=== PATIENT | female | born 1980 | race Caucasian/White ===

== ENCOUNTER 2022-04-20 11:17 | Emergency (ER) | payer OTHER, SELFPAY ==
[2022-04-20 11:33] VITALS: BP 113/74; PULSE 69; RESP 18; TEMP 36.8; O2SAT 98
--- NOTE | 2022-04-20 12:05 | ED.EAR ---
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 EYES: Denies visual changes, redness, discharge. ENT: Denies rhinorrhea, congestion, sore throat, left otalgia. CARDIOVASCULAR: Denies chest pain, palpitations, edema. RESPIRATORY: Denies dyspnea, wheezing, cough GASTROINTESTINAL: Denies abdominal pain, nausea, vomiting, diarrhea. GENITOURINARY: Denies dysuria, hematuria, abnormal discharge SKIN: Denies rash or itching. NEUROLOGIC: Denies numbness, or focal weakness. PSYCHIATRIC: Denies anxiety or depression. Exam Narrative: GENERAL: This is a well-nourished, well-developed patient, in mild distress. HEAD: normocephalic, atraumatic. EYES: Sclera clear/white. Vision is grossly intact. EARS: External ears normal, auditory canals erythema and left with drainage, hearing intact but muffling on left drainage, TMs normal without perforation. Hearing grossly intact. NOSE: External nose normal without nasal discharge, nares without redness, no rhinorrhea. THROAT: Mucous membranes moist, NECK: Neck supple, CARDIOVASCULAR: Regular rate and rhythm without murmurs, gallops, or rubs. RESPIRATORY: Clear to auscultation. Breath sounds equal bilaterally. No wheezes, rales, or rhonchi. GASTROINTESTINAL: Not done SKIN: warm, intact with no suspicious lesions or rash, good texture and turgor. NEURO: awake, alert, and oriented to person, place and time. There were no obvious focal neurologic abnormalities. Steady gait EXTREMITIES: Normal range of motion. BACK: Nontender without deformity Course Course Emergency Course: Patient here with left ear pain x2 weeks Has a history of otitis media and she has affected hearing on the left started on eardrops and amoxicillin Level of Care: Express Care Visit Vital Signs Vital signs: Vital Signs Temperature 98.3 F 04/20/22 11:33 Pulse Rate 69 04/20/22 11:33 Respiratory Rate 18 04/20/22 11:33 Blood Pressure 113/74 04/20/22 11:33 Pulse Oximetry 98 04/20/22 11:33 Oxygen Delivery Room Air 04/20/22 11:33 Temperature 98.3 F 04/20/22 11:33 Pulse Rate 69 04/20/22 11:33 Respiratory Rate 18 04/20/22 11:33 Blood Pressure 113/74 04/20/22 11:33 Pulse Oximetry 98 04/20/22 11:33 Oxygen Delivery Room Air 04/20/22 11:33 Medical Decision Making Vital Signs Vital Signs: Vital Signs Temperature 98.3 F 04/20/22 11:33 Pulse Rate 69 04/20/22 11:33 Respiratory Rate 18 04/20/22 11:33 Blood Pressure 113/74 04/20/22 11:33 Pulse Oximetry 98 04/20/22 11:33 Oxygen Delivery Room Air 04/20/22 11:33 Temperature 98.3 F 04/20/22 11:33 Pulse Rate 69 04/20/22 11:33 Respiratory Rate 18 04/20/22 11:33 Blood Pressure 113/74 04/20/22 11:33 Pulse Oximetry 98 04/20/22 11:33 Oxygen Delivery Room Air 04/20/22 11:33 Critical Care Time Critical Care Time Critical Care Time: No Discharge Plan Discharge Clinical Impression: Otitis media Patient Disposition: Home, Self-Care Condition: Stable Instructions: Antibiotic Form, Ear Infection (AC) Prescriptions: New kmrppvfz-xxeqpkxub-QV 3.5-10,000-1 mg/mL-unit/mL-% drops,suspension 4 drp EACH EAR Q8H 10 Days Qty: 10 0RF amoxicillin 875 mg tablet 875 mg PO
== END 2022-04-20 12:16 | disposition home or self-care (01) ==
PROVIDERS: Emergency Provider Nurse Practitioner; PCP Physician Assistant
DX: H66.92 Otitis media, unspecified, left ear (principal)
CPT/HCPCS: 99213; G0463

== ENCOUNTER 2022-05-09 09:36 | Outpatient (CLI) | payer OTHER, SELFPAY | END 2022-05-09 09:37 | disposition home or self-care (01) | PROVIDERS: PCP Physician Assistant; Visit Provider Obstetrics & Gynecology | DX: N92.0 Excessive and frequent menstruation with regular cycle (principal); Z01.818 Encounter for other preprocedural examination | CPT/HCPCS: 36415; 86850; 86900; 86901 ==

== ENCOUNTER 2022-05-10 01:25 | Day surgery (SDC) | payer OTHER, SELFPAY ==
[2022-05-07 10:14] VITALS: BMI 34.6
--- NOTE | 2022-05-07 10:25 | PC.NURSE ---
Report to the Outpatient Waiting Room, entrance under the green pavilion located off [facility], at time 10:00 on date 05/10/22. OR Time: 12:00. Time changes happen often and if your time is changed the preop area will call you the afternoon before. - You and your visitor will be asked to self-screen and do not enter if you have any COVID symptoms. - Only one visitor and NO children visitors are allowed at this time. YOU WILL BE ALLOWED 2 VISITORS AT A TIME ONCE IN YOUR ROOM AFTER SURGERY. - The patient visitor is requested to leave or wait in car when not with patient due to restrictions. - A mask is required within the hospital. Patients may have clear liquids (water, carbonated beverages, clear teas, apple juice) until 3 hours prior to surgery (9:00) with a maximum of 20 ounces. - No food from midnight until time of surgery Take the following medications with a SIP of water the morning of surgery: NONE Medications to discontinue per physician: VITAMINS/SUPPLEMENTS Date to take last dose: NO MORE UNTIL AFTER SURGERY Please no make-up, nail nicaraguan, hairspray, perfume, deodorant, or body powder the day of surgery. No jewelry (including any body piercings) or valuables the day of surgery, leave them at home. Please take a shower or bath the night before, or the morning of, surgery with an antibacterial soap. Wear comfortable, loose fitting clothing. - Jewelry must be removed prior to entering the operating room. Rings and piercings that are not removed may be cut off. - The hospital will not accept responsibility for valuables. - Please leave all valuables, including medications, at home the day of surgery. If you are going home after surgery, a licensed mechanic driver must drive you home. - NO public transportation without another adult. - We recommend that an adult stay with you for 24 hours following discharge. - We also recommend that you do not drive, make important decision, drink alcoholic beverages, or take any drugs that were not prescribed by your health care provider for at least 24 hours after your discharge time. Follow any additional instructions given to you from your surgeon. If you or anyone in your household have experienced Covid symptoms in the past week, please notify your surgeon or the nurse liaison at the phone number below for possible testing. Telephone instructions given to AMINATA HORTON and asked if any additional questions and then verbalized understanding. Patient advised to call surgeon office or pre surgery nurse liaison [phone] if any additional questions.
[2022-05-10] VITALS (9 sets, daily range): BP systolic 116–129; BP diastolic 71–87; PULSE 52–69; RESP 12–18; TEMP 36.4–36.8; O2SAT 96–100
--- NOTE | 2022-05-10 11:14 | WPDANESEPPF ---
Anes - Initial Pre Proc Eval Procedure: Operation Date: 05/10/22 12:00 Proposed Procedures p Robotic Assisted Hysterectomy with Bilateral Salpingectomy - Sepideh Grant MD Date/Time: 05/10/22 11:14 Surgeon: Sepideh Grant MD Pre Op Diagnosis: menorrhgahia Patient Data Age: 41 Gender: F Height: 1.64 m Weight: 93 kg Allergies Allergy/AdvReac Type Severity Reaction Status Date / Time No Known Allergies Allergy Mild Verified 05/07/22 10:12 Home Medications Medication Instructions Recorded Confirmed Type zzkgojeysaek-Ix-ufts-minerals 27 1 tablet PO DAILY 05/07/22 05/07/22 History mg-0.4 mg tablet Patient hx anesthesia problems: none Family hx anesthesia problems: none Results Review: All pre-operative results and documents have been reviewed as part of the pre-operative evaluation. [facility] Social History Social History Smoking status: Never smoker Alcohol intake: never Substance use: never Substance use type: does not use Living arrangements: with family Spiritual care concerns: No Anes - Eval Final PreProcedure Day of Procedure 05/10/22 11:14 Patient weight: obese Heart: regular rate and rhythm Lungs: clear to auscultation Neurological: alert and oriented Last oral intake: >/= 8 hours ASA classification: II Emergent: no Anesthetic plan: proceed Anesthesia type and monitoring: general ETT and standard monitoring Results Review: All pre-operative results and documents have been reviewed as part of the pre-operative evaluation. Informed Consent: The patient's anesthetic plan and its attendant risks and benefits were discussed with the patient/family/POA. Questions were solicited and answers provided to the satisfaction of the patient/family/POA.
[2022-05-10] MEDS: KETOROLAC 15 MG/ML VIAL (*BKC) IV PUSH (11:30)
[2022-05-10] MEDS: ACETAMINOPHEN 500 MG TABLET 1000 MG PO (11:30)
[2022-05-10] MEDS: LACTATED RINGERS 1,000 ML 30 ML IV CONT ×2 (11:30→16:26)
--- NOTE | 2022-05-10 12:39 | WPDHPUPDATE1 ---
History and Physical Update Update Date/Time: 05/10/22 12:39 History and Physical has been reviewed, including an updated exam of the patient. There are NO changes in the patient's condition. Risks, benefits, and alternatives have been discussed and questions answered. Patient agrees to proceed with procedure.
--- NOTE | 2022-05-10 12:40 | PM.IMHP ---
H&P: HPI History of Present Illness Date/Time: 05/10/22 12:40 Chief Complaint: Severe menorrhagia Narrative: This patient is a 41-year-old female severe menorrhagia and an enlarged fibroid uterus. We have agreed to perform robotic assisted total hysterectomy and bilateral salpingectomy. She understands the risks. She understands that injuries may occur. She understands injuries could result in hospitalization, more surgery, and severe illness. She understands risk of hemorrhage and infection. Review of Systems Review of Systems: All systems reviewed & are unremarkable except as noted in HPI and below Constitutional: Constitutional: Denies chills, Denies fatigue, Denies fever(s) and Denies weakness Eyes: Eyes: Denies blurry vision, Denies change in vision, Denies loss of peripheral vision, Denies loss of vision, Denies other visual disturbances and Denies eye pain ENT: Denies vertigo, Denies dizziness, Denies hearing loss, Denies mouth pain, Denies nasal obstruction, Denies neck mass and Denies neck pain Cardiovascular: Cardiovascular: Denies chest pain, Denies diaphoresis, Denies syncope, Denies leg edema and Denies dyspnea Respiratory: Respiratory: Denies chest congestion, Denies cough, Denies hemoptysis, Denies dyspnea and Denies wheezing Gastrointestinal: Gastrointestinal: Denies abdominal pain, Denies constipation, Denies diarrhea, Denies nausea and Denies vomiting Genitourinary: Genitourinary: Denies hematuria, Denies change in libido, Denies nocturia, Denies genital lesions, Denies flank pain and Denies urinary urgency Musculoskeletal: Musculoskeletal: Denies abnormal gait, Denies back pain, Denies myalgias, Denies arthralgias, Denies joint swelling, Denies muscle weakness and Denies neck pain Integumentary/Breasts: Skin/Breast: Denies swelling, Denies breast pain, Denies breast mass, Denies dry skin, Denies nipple discharge, Denies unusual bruising and Denies jaundice Neurologic: Denies Neuro-related abnormal movements, Denies Abnormal speech present, Denies abnormal gait, Denies behavioral changes, Denies confusion, Denies vertigo, Denies dizziness, Denies syncope, Denies loss of vision, Denies memory loss, Denies convulsions and Denies weakness Psychiatric: Psychiatric: Denies abnormal sleep pattern, Denies behavioral changes, Denies change in libido, Denies confusion, Denies depression, Denies anhedonia and Denies memory loss Endocrine: Endocrine: Reports no additional endocrine complaints, Denies change in libido and Denies fatigue Hematologic/Lymphatic: Hematologic/Lymphatic: Reports no additional hematologic/lymphatic complaints Allergic/Immunologic: Allergic/Immunologic: Reports no additional allergic/immunologic complaints and Denies wheezing PMFSH Social History Social History Smoking status: Never smoker Alcohol intake: never Substance use: never Substance use type: does not use Living arrangements: with family Spiritual care concerns: No Meds Home Medications and Allergies Home Medications Medication Instructions Recorded Confirmed Type vsgqyhntdxte-Vz-lqub-minerals 27 1 tablet PO DAILY 05/07/22 05/07/22 History mg-0.4 mg tablet Allergies Allergy/AdvReac Type Severity Reaction Status Date / Time No Known Allergies Allergy Mild Verified 05/10/22 11:41 Vital Signs Vital Signs - 24 hr 05/10/22 11:35 Temperature 97.5 F L Pulse Rate 65 Respiratory Rate 14 Blood Pressure 125/83 Pulse Oximetry 99 Oxygen Delivery Room Air Exam Const: General: cooperative, healthy appearing, comfortable and no acute distress; No confusion Orientation/consciousness: oriented to person, oriented to place, oriented to time and No confusion HENMT: Head: normal to inspection Ears: external ears normal Face/Nose/Sinus: Normal external nose present and normal facial exam Face and sinus: normal facial exam Eyes: General: appear
[2022-05-10] MEDS: ceFAZolin 2 GM/D5W 50 ML 2 GM/50 ML BAG IVPB (12:46)
--- NOTE | 2022-05-10 16:39 | P.OP_ITS ---
Procedure Note - Detailed Date of Procedure 05/10/22 Pre-op Diagnosis menorrhgahia, myoma Post-op Diagnosis Same (Endometriosis, pelvic adhesions) Procedure Performed Robotic assisted total hysterectomy with bilateral salpingectomy, adhesiolysis- 1 hour Surgeon Sepideh Grant MD Anesthesia General Indications Severe menorrhagia, uterine fibroids Findings Obliterated posterior cul-de-sac, endometriosis, endometrial implants in the posterior cul-de-sac, rectum adherent to the posterior cervix and uterus were, normal-appearing ovaries, enlarged fibroid uterus with a very large fibroid., normal-appearing fallopian tubes. Description of Procedure Patient was taken the operating room. She was prepped and draped in the dorsal lithotomy position after induction of general anesthesia. A speculum placed in vagina. Cervix grasped with tenaculum. Two sutures were placed at 3 and 9:00 a.m. of 0 Vicryl. These were drawn through the Co cup on the CHANTAL manipulator is the CHANTAL manipulator was inserted. The cervical stay sutures were then tied to the Co cup. A 5 mm trocar was inserted the left upper quadrant using a Visiport trocar. This trocar was placed with the camera inside the trocar. 3 other ports were placed 1 in the infraumbilical area, 2 in the right upper quadrant. This was done with direct visualization from inside the abdomen. The [employer] robot was then docked and the trocars were connected with their robotic arms. This was done after the camera was placed on the target and the target organ was captured for the robot. The above findings were noted. The bilateral fallopian tubes were removed. This was done with the vessel sealing cautery. This was done stepwise fashion from the distal end to the in and in the cornual region of the uterus. The tube was then transected and amputated. The tubes were removed through the larger trocar. The suspensory ligament the ovaries was cauterized and transected bilaterally. The round ligaments were cauterized and transected bilaterally. This was done with the vessel sealer. Extensive dissection was done the posterior cul-de-sac. 1 hour of adhesiolysis was performed throughout the case. The perirectal fat and rectum were from the uterus with blunt and sharp dissection. The lateral aspects of the uterus were then freed with repetitive bites of tissue along the lateral aspects of the uterus with the vessel sealer. The tissue was cauterized and then transected. Bladder flap was then created. The peritoneum and tissue on the anterior cervix near the bladder was transected. The bladder was then moved with blunt dissection distally over the cervix the bilateral ovarian arteries were then skeletonized cauterized and transected. The colpotomy was then performed in a circular fashion down to the Co cup using the cutting cautery. After the uterus was amputated had to be cut into 2 pieces using the cutting cautery. Both pieces were removed. The cuff was then closed with a 0 V lock suture in a running fashion. Pelvis was irrigated. Hematoma was placed on the vaginal cuff. Instruments removed. Trocars were removed. Skin was closed with subcuticular 4-0 Monocryl. Covered with Dermabond. The patient was taken recovery room stable condition. Sponge lap and needle counts were correct x2. Estimated Blood Loss -150.0 Urine Output -400.0 Pathology Yes Complications None Condition Stable Disposition Floor
[2022-05-10] MEDS: fentaNYL CITRATE INJ (*CRX) 100 MCG/2 ML VIAL 25 MCG IV PUSH ×4 (16:52→17:29)
--- NOTE | 2022-05-10 17:52 | PC.NURSE ---
Patient transferred to post room # via (289). Support person present. Oriented to unit, room, information board, rooming in, admission packet and security measures. Patient verbalizes understanding.
[2022-05-10] MEDS: DEXTROSE 5%/0.45% SOD CHL 1,000 ML 125 ML IV CONT (18:06)
[2022-05-10] MEDS: KETOROLAC 30 MG/ML VIAL (*BKC) IV PUSH ×2 (18:07→23:43)
[2022-05-10] MEDS: HYDROcodone/acetaminophen (*CRX) 10-325 MG TABLET 1 TAB PO ×2 (19:11→21:58)
[2022-05-11 04:40] VITALS: BP 97/63; PULSE 63; RESP 16; TEMP 36.7
--- NOTE | 2022-05-11 07:54 | WPDANESPN ---
Anes - Prog Note Post-Op Date/Time: 05/11/22 07:54 Cardiovascular status: normal Respiratory status: normal Airway patency: baseline Mental status: baseline Post-Op hydration status: normal Vital Signs: Last Vital Signs Temp 98.1 F 05/11/22 04:40 Pulse 63 05/11/22 04:40 Resp 16 05/11/22 04:40 BP 97/63 L 05/11/22 04:40 Pulse Ox 96 05/10/22 20:40 O2 Del Method Room Air 05/10/22 17:38 O2 Flow Rate 10 05/10/22 16:55 Pain Score (VAS): 3 I/O: Intake & Output 05/10/22 05/10/22 05/11/22 15:59 23:59 07:59 Intake Total 1000 1160 900 Output Total 650 300 Balance 1000 510 600 Post-procedural complaints: none Patient Feedback: Patient satisfied with anesthetic care.
[2022-05-11 08:45] VITALS: BP 89/49; PULSE 59; RESP 18; TEMP 36.9; O2SAT 98
[2022-05-11] MEDS: IBUPROFEN 600 MG TABLET PO (08:58)
[2022-05-11 09:00] VITALS: PULSE 59; RESP 18; O2SAT 98
== END 2022-05-11 10:26 | disposition home or self-care (01) ==
LOC: ANHSURGERY 10:04 → ANHOB2 20:31
PROVIDERS: PCP Physician Assistant; Visit Provider Obstetrics & Gynecology
PROC: (CPT 58552; principal; 2022-05-10 12:00)
DX: D25.2 Subserosal leiomyoma of uterus (principal); N80.209 Endometriosis of unspecified fallopian tube, unspecified depth; N92.0 Excessive and frequent menstruation with regular cycle
CPT/HCPCS: 58552; S2900; 36415; 86850; 86900; 86901; 88307; 99199; A9270; J0690; J1100; J1170; J1885; J2250; J2405; J2704; J2710; J3010; J7030; J7120

== ENCOUNTER → 2022-10-04 13:28 | Outpatient (CLI) | payer OTHER, SELFPAY ==
--- NOTE | ~2022-10-04 | MM_ITS ---
EXAMINATION: MM screening shala BI w jeannie HISTORY: Screening mammogram TECHNIQUE: Craniocaudal and mediolateral oblique 3-D tomosynthesis images were obtained and synthetic 2-D images were generated. Bilateral rotated lateral CC views. CAD analysis was submitted and interp reted. COMPARISON: 12/22/2018 bilateral diagnostic mammography and bilateral breast ultrasound examination bilateral diagnostic mammography and right breast ultrasound examination BREAST PARENCHYMAL COMPOSITION: The breasts are heterogeneously dense, which may obscure small masses . FINDINGS: There are 2 biopsy markers on the left, one associated with a circumscribed approximately 1 2 x 19 mm mass at 12:00, the other a circumscribed 10 x 12 mm mass in the lower inner quadrant of the left breast. History of 2 prior benign left breast biopsies. Stable low-density circumscribed approximately 5.5 x 8.5 mm opacity in the upper inner left breast un changed since 12/22/2018. There is no evidence otherwise of suspicious mass, calcification, or architectural distortion to sugg est malignancy in either breast. There has been no suspicious interval change. IMPRESSION: 1. No mammographic evidence of malignancy. 2. Recommend routine screening mammography in one year. BI-RADS Category 2: Benign finding(s). Reviewed, dictated and finalized at location A. LE COVERER
== END ==
PROVIDERS: PCP Obstetrics & Gynecology Gynecology; Visit Provider Advanced Practice Midwife
DX: Z12.31 Encounter for screening mammogram for malignant neoplasm of breast (principal)
CPT/HCPCS: 77063; 77067

== ENCOUNTER 2023-05-27 02:28 | Day surgery (SDC) | payer OTHER, SELFPAY ==
[2023-05-16 09:56] VITALS: BMI 35.2
[2023-05-27 09:15] VITALS: BP 113/67; PULSE 66; RESP 16; TEMP 36; O2SAT 98
[2023-05-27] MEDS: LACTATED RINGERS 1,000 ML 150 ML IV CONT (09:24)
--- NOTE | 2023-05-27 09:52 | P.HP_ITS ---
History of Present Illness History of Present Illness Consent: Risks, benefits, and alternatives have been discussed and questions answered. Patient agrees to proceed with procedure. Chief complaint: Family history of colon cancer Narrative: Lucila Garcia is a 42 year old female Presents for screening colonoscopy. Family history is significant that her mother had colon cancer. Patient's current weight appetite and bowel movements are normal. Patient denies abdominal pain. She has had no bleeding. Neoplasia screening to be performed today. Review of Systems Review of Systems: Review of systems noncontributory. [facility] Social History Social History Smoking status: Never smoker Alcohol intake: never Substance use: never Substance use type: does not use Living arrangements: with family Spiritual care concerns: No Meds Home Medications and Allergies Home Medications Medication Instructions Recorded Confirmed Type roauxewbatwj-Gc-ngwo-minerals 27 1 tablet PO DAILY 05/07/22 05/16/23 History mg-0.4 mg tablet estradiol 1 mg tablet 1 mg PO DAILY 05/16/23 05/16/23 History Allergies Allergy/AdvReac Type Severity Reaction Status Date / Time No Known Allergies Allergy Mild Verified 05/27/23 09:14 Vital Signs Vital Signs - 24 hr 05/27/23 09:15 Temperature 96.8 F L Pulse Rate 66 Respiratory Rate 16 Blood Pressure 113/67 Pulse Oximetry 98 Oxygen Delivery Room Air Exam Narrative: Physical exam reveals patient to be alert. Vital signs stable. HEENT exam is unremarkable. Patient is anicteric. Lungs are clear to auscultation and percussion. Heart is without murmur or extra sounds. Abdomen bowel sounds are present soft nontender with no hepatosplenomegaly. Digital external rectal exam is normal. Assessment and Plan Assessment and plan (1) Family history of colon cancer in mother: Code(s): Z80.0 - Family history of malignant neoplasm of digestive organs Status: Acute Assessment and Plan: Patient's mother has had colon cancer. Plan for surveillance colonoscopy now and consider this at 5 year intervals in the future.
--- NOTE | 2023-05-27 10:27 | P.PNAN_ITS ---
Anes - Initial Pre Proc Eval Procedure: Operation Date: 05/27/23 10:30 Proposed Procedures p Colonoscopy - Dimas Lassiter MD Date/Time: 05/27/23 10:27 Surgeon: Dimas Lassiter MD Pre Op Diagnosis: Family history of colon cancer Patient Data Age: 42 Gender: F Height: 1.63 m Weight: 93 kg Last Vital Signs Temp 96.8 F L 05/27/23 09:15 Pulse 78 05/27/23 10:18 Resp 15 05/27/23 10:18 BP 90/59 L 05/27/23 10:18 Pulse Ox 98 05/27/23 10:18 O2 Del Method Room Air 05/27/23 10:18 Allergies Allergy/AdvReac Type Severity Reaction Status Date / Time No Known Allergies Allergy Mild Verified 05/27/23 09:14 Home Medications Medication Instructions Recorded Confirmed Type apacyefnjvki-Ml-rsep-minerals 27 1 tablet PO DAILY 05/07/22 05/16/23 History mg-0.4 mg tablet estradiol 1 mg tablet 1 mg PO DAILY 05/16/23 05/16/23 History Patient hx anesthesia problems: none Family hx anesthesia problems: none Results Review: All pre-operative results and documents have been reviewed as part of the pre- operative evaluation. [facility] Social History Social History Smoking status: Never smoker Alcohol intake: never Substance use: never Substance use type: does not use Living arrangements: with family Spiritual care concerns: No Anes - Eval Final PreProcedure Day of Procedure 05/27/23 10:27 Patient weight: obese Heart: regular rate and rhythm Lungs: clear to auscultation Airway: Mallampati scale class II Neurological: alert and oriented Last oral intake: >/= 8 hours ASA classification: II Emergent: no Anesthetic plan: proceed Anesthesia type and monitoring: general GIVS and standard monitoring Results Review: All pre-operative results and documents have been reviewed as part of the pre- operative evaluation. Informed Consent: The patient's anesthetic plan and its attendant risks and benefits were discussed with the patient/family/POA. Questions were solicited and answers provided to the satisfaction of the patient/family/POA.
[2023-05-27 11:00] VITALS: BP 110/58; PULSE 72; RESP 24; O2SAT 100
[2023-05-27 11:10] VITALS: BP 120/73; PULSE 74; RESP 20; O2SAT 100
[2023-05-27 11:20] VITALS: BP 113/72; PULSE 60; RESP 25; O2SAT 100
== END 2023-05-27 11:27 | disposition home or self-care (01) ==
PROVIDERS: Visit Provider Internal Medicine Gastroenterology
PROC: 0DJD8ZZ Inspection of Lower Intestinal Tract, Via Natural or Artificial Opening Endoscopic (ICD-10-PCS; CPT 45378; principal; 2023-05-27 10:30)
DX: Z12.11 Encounter for screening for malignant neoplasm of colon (principal); K63.5 Polyp of colon; E66.9 Obesity, unspecified; Z68.35 Body mass index [BMI] 35.0-35.9, adult; Z80.0 Family history of malignant neoplasm of digestive organs
CPT/HCPCS: 45385; 88305; J2704; J7120

== ENCOUNTER → 2023-07-01 10:14 | Outpatient (CLI) | payer OTHER, SELFPAY ==
--- NOTE | ~2023-07-01 | DEXA_ITS ---
Bone Density Report Name: SOL MICHAEL Age: 42 Sex: Female Ethnicity: White Date of : 1980 Indication: postmenopausal; hysterectomy; Referring Provider: BROOK TAN Study: Bone densitometry was performed. Exam Date: July 01, 2023 Accession number: [id number] Bone Density: Region BMD T-score Z-score Classification AP Spine (L1-L4) 1.170 1.1 1.5 Normal Femoral Neck (Left) 0.948 0.9 1.3 Normal Total Hip (Left) 1.025 0.7 1.0 Normal Femoral Neck (Right) 0.989 1.3 1.7 Normal Total Hip (Right) 1.072 1.1 1.3 Normal Total Hip Mean 1.049 0.9 1.2 Normal World Health Organization criteria for BMD impression classify patients as: Normal (T-score at or above -1.0), Osteopenia (T-score between -1.0 and -2.5), or Osteoporosis (T-score at or below -2.5). 10-year Fracture Risk: FRAX not reported because: All T-scores for Spine Total, Hip Total, Femoral Neck at or above -1.0 Clinical Information Provided by Patient: Has used the following medications: HRT (i.e. estrogen/hormone therapy), MARIA ELENA Has the following medical conditions: Hysterectomy Patient maximum height was 64.6 Menopause Age: 41 No regular weight bearing exercise Drinks caffeinated beverages Onset of menses at age 9 Number of children 2 Impression: The patient has normal bone mass. Discussion: BONE DENSITY IS ABOVE THE MINIMUM DESIRABLE LEVEL AT ALL SKELETAL SITES TESTED. This patient?s bone mineral density is above the minimum desirable level (T-score -1.0 or better) at all sites measured. The patient should follow a healthful lifestyle (good nutrition with adequate calcium and vitamin D, and appropriate weight-bearing exercise). Follow-Up: Consider repeating this study in 5 years or sooner if there is some new clinical indication. Reported by: NURY on 07/01/2023 10:33:00 AM. Reviewed, dictated and finalized at location ADebbie YO
== END ==
PROVIDERS: PCP Obstetrics & Gynecology Gynecology; Visit Provider Obstetrics & Gynecology Gynecology
DX: Z78.0 Asymptomatic menopausal state (principal)
CPT/HCPCS: 77080

== ENCOUNTER 2024-01-15 08:43 | Outpatient (CLI) | payer OTHER, SELFPAY ==
--- NOTE | ~2024-01-15 | MMUS_ITS ---
EXAMINATION: MM diagnostic shaal BI w jeannie, US breast LT limited HISTORY: Palpable left breast lump TECHNIQUE: Additional 3-D tomosynthesis images of the breasts were performed and synthetic 2-D images were generated. CAD analysis was submitted and interpreted. High resolution Limited left breast ultr asound was performed. COMPARISON: Comparison to multiple prior studies sequentially, with oldest reviewed study dated 12/22. BREAST PARENCHYMAL COMPOSITION: Dense: The breasts are extremely dense, which lowers the sensitivity of mammography. FINDINGS: MAMMOGRAPHIC FINDINGS: There is a small obscured mass in the upper outer quadrant of the left breast corresponding to the ar ea of palpable concern. There are masses in the left breast in the upper central and lower central as pect of the left breast with associated tissue markers from prior benign biopsies. There is no mammog raphic evidence for malignancy in the right breast. ULTRASOUND: Limited left breast ultrasound: At 12:00, 4.5 cm from the nipple, there is a slightly irregular solid hypoechoic 2.2 cm mass with mix ed posterior attenuation and no internal vascularity. At 1-2:00, 7 cm from the nipple, there is an 8 mm intramammary lymph node. At T2-3 o'clock, 10 cm from the nipple, there is a 1 cm intramammary lymp h node. IMPRESSION: 1. Suspicious solid 2.2 cm left breast mass at 12:00, 4.5 cm from the nipple. 2. Ultrasound-guided left breast biopsy recommended. BI-RADS category 4, suspicious findings. Reviewed, dictated and finalized at location B. IMPRESSION: 1. Suspicious solid 2.2 cm left breast mass at 12:00, 4.5 cm from the nipple. 2. Ultrasound-guided left breast biopsy recommended. BI-RADS category 4, suspicious findings.
== END 2024-01-15 08:44 ==
LOC: MICIMG 08:44
PROVIDERS: PCP Obstetrics & Gynecology Gynecology; Visit Provider Obstetrics & Gynecology Gynecology
DX: N63.21 Unspecified lump in the left breast, upper outer quadrant (principal); R92.8 Other abnormal and inconclusive findings on diagnostic imaging of breast
CPT/HCPCS: 76642; 77062; 77066; G0279

== ENCOUNTER 2024-02-12 12:34 | Outpatient (CLI) | payer OTHER, SELFPAY ==
--- NOTE | ~2024-02-12 | MR_ITS ---
MR breast BI wo/w con 02/12/2024 14:10 CDT INDICATION: Left breast mass seen on prior examination. Previous benign biopsies of the left breast a t outside institution. TECHNIQUE: MRI of the breasts perform using standard protocol pre-and post IV contrast with the follo wing sequences: Axial T2 STIR, axial T1, axial vibrant T1 with fat suppression precontrast and multip hasic postcontrast. 19 cc MultiHance administered intravenously. COMPARISON: Comparison to multiple prior studies sequentially, with oldest reviewed study dated 12/2012. FINDINGS: There are no abnormalities on the precontrast sequences. There is moderate background paren chymal enhancement. No enhancing lesions following contrast administration. No areas of enhancement meeting threshold criteria on CAD analysis. No evidence of signal abnormalities in the axillary or internal mammary node distributions. LEFT BREAST: No signal abnormalities on precontrast sequences. There is mild background parenchymal enhancement. In the upper inner quadrant of the left breast 11:00 anteriorly there is a circumscribed oval mass measuring 1.9 x 1.6 x 1.3 cm with focal susceptibility effect, consistent with biopsy von er is benign biopsy. The margins are circumscribed with homogeneous rapid plateau enhancement. In the lower inner quadrant of the left breast at 7:00, middle third there is a 1.6 x 1.2 x 1.2 cm mass wit h associated susceptibility effect, consistent with previous benign biopsy. This is located 7.1 cm fr om the nipple, best seen on prior mammogram on MLO view. This was also previously biopsy-proven benig n. In the upper outer quadrant of the left breast at approximately 2:00, middle third there is an 8 x 6 x 5 mm oval mass with rapid washout enhancement. The margins are circumscribed. This corresponds t o a lymph node seen on prior ultrasound. IMPRESSION: 1: Right breast: Negative. No evidence of malignancy. BI-RADS category 1. Recommend annual mammo graphy follow-up. 2: Left breast: Negative. Likely benign findings. Multiple masses are identified,, 2 of which conta in susceptibility effect corresponding to masses with tissue marker seen on prior mammography, previo usly biopsy-proven benign. An additional mass with oval configuration corresponds to a intramammary l ymph node seen on ultrasound dated 01/15/2024. BI-RADS CATEGORY 3-PROBABLY BENIGN FINDING RECOMMENDATION: Six-month follow-up diagnostic left mammogram and ultrasound recommended. Reviewed, dictated and finalized at location B. IMPRESSION: 1: Right breast: Negative. No evidence of malignancy. BI-RADS category 1. Recommend annual mammography follow-up. 2: Left breast: Negative. Likely benign findings. Multiple masses are identif ied,, 2 of which contain susceptibility effect corresponding to masses with tis sylwia marker seen on prior mammography, previously biopsy-proven benign. An addit ional mass with oval configuration corresponds to a intramammary lymph node see n on ultrasound dated 01/15/2024. BI-RADS CATEGORY 3-PROBABLY BENIGN FINDING RECOMMENDATION: Six-month follow-up diagnostic left mammogram and ultrasound re commended.
== END 2024-02-12 12:35 | disposition home or self-care (01) ==
PROVIDERS: Visit Provider Surgery
DX: Z12.31 Encounter for screening mammogram for malignant neoplasm of breast (principal); R92.343 Mammographic extreme density, bilateral breasts; N63.20 Unspecified lump in the left breast, unspecified quadrant; R92.8 Other abnormal and inconclusive findings on diagnostic imaging of breast
CPT/HCPCS: 77049; A9577; C8908

== ENCOUNTER 2024-05-30 11:58 | Emergency (ER) | payer OTHER, SELFPAY ==
--- NOTE | 2024-05-30 12:05 | ED_ITS ---
HPI - General Adult General Chief complaint: Upper Respiratory Infection Stated complaint: congestion / cough Time Seen by Provider: 05/30/24 12:05 Source: patient Mode of arrival: ambulatory Limitations: no limitations History of Present Illness HPI narrative: 43-year-old female patient presents to the [facility] with complaints of cough and congestion for the past 6 days. Patient complains of itchy eyes but denies any ear pain or sore throat. Denies any chest pain and states does have shortness of breath at times in the middle of the night when her nose is very clogged. Denies any abdominal pain, nausea, vomiting or diarrhea. Patient states she does take Zyrtec daily and has tried taking sopi-rds-ebhnwib Benadryl and DayQuil NyQuil for her symptoms. Related Data Home Medications Medication Instructions Recorded Confirmed estradiol 1 mg tablet 1 mg PO DAILY 05/16/23 05/16/23 Allergies Allergy/AdvReac Type Severity Reaction Status Date / Time No Known Allergies Allergy Mild Verified 05/30/24 12:11 Review of Systems Review of Systems: CONSTITUTIONAL: Denies fever, chills, or sweats. EYES: Denies visual changes, redness, or discharge. ENT: Positive rhinorrhea, congestion, denies sore throat, denies otalgia. CARDIOVASCULAR: Denies chest pain, palpitations, or edema. RESPIRATORY: positive cough denies dyspnea. GASTROINTESTINAL: Denies abdominal pain, nausea, vomiting, or diarrhea. GENITOURINARY: Denies dysuria or hematuria. SKIN: Denies rash or itching. MUSCULOSKELETAL: Denies back pain, joint pain, or myalgia. NEUROLOGIC: Denies headache, numbness, or weakness. PSYCHIATRIC: Denies anxiety or depression. [facility] Past Medical History Medical History (Updated 05/30/24 @ 12:26 by IDALMIS Moyer) Abnormality of left breast on screening mammogram Breast mass, left Eczema Family history of colon cancer in mother Fibroid uterus Myoma Family History Family History Mother Carcinoma of colon Grandparent Family history of diabetes mellitus in first degree relative Social History Social History Smoking status: Never smoker Second hand tobacco smoke exposure: No Alcohol intake: never Substance use: never Substance use type: does not use Living arrangements: with family Spiritual care concerns: No Comments At the time of my signature I agree with nursing past medical history, surgical, social, and family history. There is no relevant family history pertinent to the presenting complaint. Exam Narrative: GENERAL: Well-appearing, well-nourished, and in no acute distress. HEAD: Normocephalic, atraumatic. EYES: PERRLA and EOMI. ENT: Nares with erythema edema noted to bilateral nares, no active rhinorrhea or epistaxis. Mucous membranes moist. posterior pharynx with 2+ tonsillar enlargement no erythema there is postnasal drip noted to the posterior pharynx. NECK: Supple. No lymphadenopathy CHEST: Clear to auscultation. No respiratory distress. HEART: Regular rate and rhythm. No murmur heard. Normal peripheral pulses. ABDOMEN: Soft, nontender, nondistended, normal active bowel sounds. EXTREMITIES: Normal range of motion. No edema. SKIN: Warm, dry, no rash. NEURO: No focal deficits. Alert and oriented x3. Course Course Level of Care: Express Care Visit Vital Signs Vital signs: Vital Signs Temperature 36.6 C 05/30/24 12:09 Pulse Rate 89 05/30/24 12:09 Respiratory Rate 18 05/30/24 12:09 Blood Pressure 136/79 05/30/24 12:09 Pulse Oximetry 99 05/30/24 12:09 Oxygen Delivery Room Air 05/30/24 12:09 Temperature 36.6 C 05/30/24 12:09 Pulse Rate 89 05/30/24 12:09 Respiratory Rate 18 05/30/24 12:09 Blood Pressure 136/79 05/30/24 12:09 Pulse Oximetry 99 05/30/24 12:09 Oxygen Delivery Room Air 05/30/24 12:09 Vital signs reviewed. Medical Decision Making MDM Narrative Medical decision making narrative: Discussed with patient that her lungs are clear and there is no fevers today I think the low likelihood of any bronchitis or pneumonia is very low at this point. Discussed with patient this time is mostly due to virus or could be due to environmental allergens. Discussed with patient we will discharge her home with Tessalon Perles and a steroid Dosepak to help with the congestion and drainage. Discussed with patient she can continue taking her Zyrtec and I would highly recommend an cyot-zoi-shglrcz Flonase to help with the congestion as well. Discussed with patient if her symptoms worsen she develops fevers, chest pain or shortness of breath highly recommend she go to the ER for further evaluation and treatment. Patient verbalized understanding denies any other questions or concerns at this time. Differential Diagnosis Differential Diagnosis: Differential diagnosis: Allergic rhinitis, chronic sinusitis, tonsillitis, acute sinusitis, infectious mononucleosis, seasonal influenza, pertussis, diphtheria, meningococcal disease, viral syndrome, viral bronchitis, RSV, COVID- 19 Vital Signs Vital Signs: Vital Signs Temperature 36.6 C 05/30/24 12:09 Pulse Rate 89 05/30/24 12:09 Respiratory Rate 18 05/30/24 12:09 Blood Pressure 136/79 05/30/24 12:09 Pulse Oximetry 99 05/30/24 12:09 Oxygen Delivery Room Air 05/30/24 12:09 Temperature 36.6 C 05/30/24 12:09 Pulse Rate 89 05/30/24 12:09 Respiratory Rate 18 05/30/24 12:09 Blood Pressure 136/79 05/30/24 12:09 Pulse Oximetry 99 05/30/24 12:09 Oxygen Delivery Room Air 05/30/24 12:09 Critical Care Time Critical Care Time Critical Care Time: No Discharge Plan Discharge Clinical Impression: Viral URI with cough Patient Disposition: Home, Self-Care Condition: Stable Instructions: Antibiotic Form, Viral Syndrome (ED) Additional Instructions: Viral illness may last between 7-12days; antibiotic is NOT recommended at this time. Recommend antihistamine such as Benadryl at night time and Claritin/Zyrtec/Kandi during the day Cough syrup may cause drowsiness; avoid driving or take it at night time. Also, recommend symptomatic treatment includes: rest, fluids, and increase humidity of the air at home. Recommend Acetaminophen or nonsteroidal anti-inflammatory agents (NSAIDs) as directed in the bottle to reduce fever and/pain/headache. Avoid smoking/second-hand smoke. Limit visits to areas with large crowds. Please schedule a follow-up visit with your personal physician for further evaluation and treatment within 3-5days. Including recheck and discussion of your blood pressure. If your symptoms persist, change or worsen significantly before you can contact your personal physician then please, without delay, go to the emergency department for further evaluation. Prescriptions: New benzonatate 200 mg capsule 200 mg PO TID PRN (Reason: cough) 10 Days Qty: 30 0RF prednisone 20 mg tablet 20 mg PO DAILY 5 Days Qty: 5 0RF No Action estradiol 1 mg tablet 1 mg PO DAILY Follow-up/Referrals: UNKNOWN,DOCTOR [Primary Care Provider] - Time of Disposition: 12:26
[2024-05-30 12:09] VITALS: BP 136/79; PULSE 89; RESP 18; TEMP 36.6; O2SAT 99
== END 2024-05-30 12:32 | disposition home or self-care (01) ==
PROVIDERS: Emergency Provider Nurse Practitioner Family
DX: J06.9 Acute upper respiratory infection, unspecified (principal); R05.9 Cough, unspecified
CPT/HCPCS: 99213; G0463

== ENCOUNTER 2024-09-02 09:14 | Outpatient (CLI) | payer OTHER, SELFPAY ==
--- NOTE | ~2024-09-02 | MMUS_ITS ---
EXAMINATION: MM diagnostic shala LT w jeannie, US breast LT complete HISTORY: Follow-up left breast masses. TECHNIQUE: Additional 3-D tomosynthesis images of the left breast were performed and synthetic 2-D im ages were generated. CAD analysis was submitted and interpreted. High resolution complete left breast ultrasound was performed. COMPARISON: Comparison to multiple prior studies sequentially, with oldest reviewed study dated 12/2012. BREAST PARENCHYMAL COMPOSITION: Dense: The breasts are heterogeneously dense, which may obscure small masses FINDINGS: MAMMOGRAPHIC FINDINGS: Stable obscured masses In the upper central aspect of the left breast in the lower inner quadrant of the left breast, both o f which contain biopsy markers and were previously biopsy-proven benign. No new masses, calcification s or architectural distortion in the left breast to suggest malignancy. There is a benign appearing i ntramammary lymph node in the upper outer quadrant of the left breast posteriorly. ULTRASOUND: Complete US of all 4 quadrants of the left breast/s and retroareolar region was reviewed. At 12:00, 4 cm from the nipple there is an oval parallel oriented hypoechoic mass without posterior f eatures or internal vascularity measuring 2.2 x 0.9 x 5 cm, without significant change from prior douglas dy allowing for technique. At 1-2:00, 7 cm from the nipple there is a 9 mm intramammary lymph node. A t 6:00, 3 cm from the nipple there is a round hypoechoic mass containing a linear echogenic focus, co nsistent with biopsy clip measuring 1.2 cm. This was previously biopsy proven benign. IMPRESSION: 1. Stable left breast mass at 12:00, 4 cm from the nipple without significant change dating back to allowing for differences of technique, likely benign. 2. Recommend 6 month follow-up bilateral mammogram and Limited left breast ultrasound recommended. BI-RADS category 3, probably benign findings. Reviewed, dictated and finalized at location A. INSPECTOR IMPRESSION: 1. Stable left breast mass at 12:00, 4 cm from the nipple without significant c hange dating back to 12/22/2018 allowing for differences of technique, likely be nign. 2. Recommend 6 month follow-up bilateral mammogram and Limited left breast ultr asound recommended. BI-RADS category 3, probably benign findings.
== END 2024-09-02 09:15 | disposition home or self-care (01) ==
PROVIDERS: PCP Surgery; Visit Provider Surgery
DX: R92.8 Other abnormal and inconclusive findings on diagnostic imaging of breast (principal); N63.22 Unspecified lump in the left breast, upper inner quadrant
CPT/HCPCS: 76641; 77061; 77065; G0279

== ENCOUNTER 2025-04-13 10:00 | Emergency (ER) | payer OTHER, SELFPAY ==
--- NOTE | 2025-04-13 10:08 | ED.FEMALEGU ---
HPI - Female Genitourinary General Chief complaint: Urogenital-Female Stated complaint: UTI Time Seen by Provider: 04/13/25 10:08 Source: patient, RN notes reviewed and old records reviewed Mode of arrival: ambulatory Limitations: no limitations History of Present Illness HPI Narrative: 44 year old female who presents to [facility] care with complaints of having white vaginal discharge with some itching and did take Monistat OTC 3 day treatment which did seem to help till started having again the white discharge last night and was itchy again. Patient reports she thinks she may of gotten a little dehydrated over the weekend was busy and didn't drink fluids like she should. She reports that for past few days not urinating as much and has been trying to drink fluids. Patient reports that she had some suprapubic pressure last evening and did take some Tylenol at bedtime. denies any burning with urination or any chills or fevers or any back pain or any CVA tenderness, Patient reports no nausea, vomiting or diarrhea, denies any fevers.Patient reports no concern for any STI's MD elicited complaint: UTI (concern) and other (white vaginal discharge with itching) Onset (ago): week(s) (initial symptoms 1 week then increased last night) Location of symptoms: suprapubic (pressure last evening) and vaginal Severity scale (1-10): 2 Quality of pain: aching Vaginal discharge: white and other (itchy) Related Data Home Medications ?Medication ?Instructions ?Recorded ?Confirmed ?Last Taken ?Type estradiol 1 mg tablet 1 mg PO DAILY 05/16/23 04/13/25 Unknown History Allergies Allergy/AdvReac Type Severity Reaction Status Date / Time No Known Allergies Allergy Mild Verified 04/13/25 10:06 Review of Systems Review of Systems: CONSTITUTIONAL: Denies fever, chills, or sweats. CARDIOVASCULAR: Denies chest pain, palpitations, or edema. RESPIRATORY: Denies cough or dyspnea. GASTROINTESTINAL: Denies abdominal pain, nausea, vomiting, or diarrhea. GENITOURINARY: Reports no dysuria, frequency, urgency, reports voiding in small amounts Denies flank pain or hematuria. reports white discharge that is itchy and episode of suprapubic discomfort last evening SKIN: Denies rash or itching. MUSCULOSKELETAL: Denies back pain or myalgia. Denies CVA tenderness NEUROLOGIC: Denies headache All systems reviewed & are unremarkable except as noted in HPI and below PMFSH Past Medical History Medical History Abnormality of left breast on screening mammogram Breast mass, left Family history of colon cancer in mother Fibroid uterus Myoma Eczema Surgical History Surgical History H/O: hysterectomy Family History Family History Mother Carcinoma of colon Grandparent Family history of diabetes mellitus in first degree relative Social History Social History Smoking status: Never smoker Second hand tobacco smoke exposure: No Alcohol intake: never Substance use: never Substance use type: does not use Living arrangements: with family Spiritual care concerns: No Comments At time of signature, agree with nursing past medical, surgical, social and family history. There is no relevant family history pertinent to the presenting complaint Exam Narrative: GENERAL: Well-appearing, well-nourished, and in no acute distress. HEAD: Normocephalic, atraumatic. NECK: Supple. no lymphadenopathy CHEST: Clear to auscultation. No respiratory distress. HEART: Regular rate and rhythm. No murmur heard. Normal peripheral pulses. ABDOMEN: Soft, nontender, nondistended, normal active bowel sounds. No CVA tenderness, no McBurney point tenderness and denies any acute suprapubic pain on palpation, reports no burning with urination, has some white discharge without odor and states is itching EXTREMITIES: Normal range of motion. No edema. SKIN: Warm, dry, no rash. NEURO: No focal deficits. Alert and oriented x3. Course Course Emergency Course: Patient is aware of diagnosis, understands and agrees to treatment plan.? Anticipatory guidance given.? Patient agrees to follow-up as directed and is aware of reasons to seek care at the emergency department. Portions of this record may have been created with voice recognition software Level of Care: Express Care Visit Vital Signs Vital signs: Vital Signs Temperature 36.2 C L 04/13/25 10:12 Pulse Rate 68 04/13/25 10:12 Respiratory Rate 18 04/13/25 10:12 Blood Pressure 117/76 04/13/25 10:12 Pulse Oximetry 99 04/13/25 10:12 Oxygen Delivery Room Air 04/13/25 10:12 Temperature 36.2 C L 04/13/25 10:12 Pulse Rate 68 04/13/25 10:12 Respiratory Rate 18 04/13/25 10:12 Blood Pressure 117/76 04/13/25 10:12 Pulse Oximetry 99 04/13/25 10:12 Oxygen Delivery Room Air 04/13/25 10:12 reviewed MDM - Female Genitourinary MDM Narrative Medical decision making narrative: Exam findings and UA show no acute concerns or changes; patient is non-toxic appearing and is in no distress.? Patient is appropriate for outpatient treatment and follow-up. Differential Diagnosis Differential diagnosis: Likely urinary tract infection, cystitis and other (vaginal yeast infection) Medical Records Attestation: I reviewed the patient's medical records. Lab Data Attestation: I reviewed the patient's lab results. Lab results narrative: urine dip: Yellow and slightly cloudy: glucose negative, bilirubin negative, ketone negative, specific gravity 1.025, blood negative, pH 6.0 protein negative, urobilinogen 0.2 nitrate negative, leukocyte negative Labs: Lab Results 04/13/25 Range/Units 10:17 POC Urine Color Yellow POC Urine Clarity Cloudy POC Urine pH 6.0 POC Ur Specif [place] 1.025 POC Urine Protein Negative (Negative) POC Ur Glucose (UA) Negative (Negative) POC Urine Ketones Negative (Negative) POC Urine Blood Negative (Negative) POC Urine Nitrite Negative (Negative) POC Urine Bilirubin Negative (Negative) POC Urine Urobilinogen 0.2 POC U Leukocyte Esteras Negative (Negative) reviewed Critical Care Time Critical Care Time Critical Care Time: No Discharge Plan Discharge Clinical Impression: Vaginal yeast infection, Suprapubic pressure Patient Disposition: Home Condition: Stable Instructions: Yeast Infection (ED) Additional Instructions: Increase fluids especially cranberry juice and water Avoid caffeine and carbonated beverages Tylenol/ibuprofen for pain or fever Follow-up with her primary care provider if further problems or concerns Recheck if you have fever over 101, nausea and vomiting. Diflucan as ordered urine culture sent and you will be notified if it grows any abnormal bacteria and an appropriate antibiotic will be ordered at that time. If your symptoms persist, change or worsen significantly before you can contact your personal physician then please, without delay, go to the emergency department for further evaluation. Follow-up with PCP in 7-10 days or sooner if needed Patient Language: Kazakh Prescriptions: New fluconazole 150 mg tablet 150 mg PO DAILY Qty: 2 0RF Rx Instructions: take one today and may repeat X1 if needed in 72 hours No Action benzonatate 200 mg capsule 200 mg PO TID PRN (Reason: cough) 10 Days Qty: 30 0RF prednisone 20 mg tablet 20 mg PO DAILY 5 Days Qty: 5 0RF estradiol 1 mg tablet 1 mg PO DAILY Follow-up/Referrals: PHYSICIAN,EXHAUST WORKER [Primary Care Provider, Internal Medicine] Time of Disposition: 10:29 Quality [place] Coma Scale Eyes: Open Verbal: Oriented and Alert Motor: Follows Commands Minnie Coma Total Score: 15
[2025-04-13 10:12] VITALS: BP 117/76; PULSE 68; RESP 18; TEMP 36.2; O2SAT 99
[2025-04-13 10:20] LABS: EDUAAPPEAR Cloudy; EDUABILI Negative (Negative); EDUABLOOD Negative (Negative); EDUACOLOR1 Yellow; EDUAGLUCOSE Negative (Negative); EDUAKETONE Negative (Negative); EDUALEUKO Negative (Negative); EDUANITRATE Negative (Negative); EDUAPH 6.0; EDUAPROTEIN Negative (Negative); EDUASPGRAVITY 1.025; EDUAUROBILI 0.2
--- OUTSIDE RECORDS SUMMARY | 2025-04-13 11:21 | XMS_ITS | Clinical Summary ---
Author Organization [facility] Address [address] [place] [address] Care Team Providers Care Computational Chemist Name Role Phone Unavailable Primary Care Provider Unavailabl e Source Comments [facility],non-owned Affiliates and Associated Physician Practices is amultiple site organization consisting of ambulatory clinics and hospital sitesin [place], [place], [place] and [place]. This disclosure is being madepursuant to the Care Everywhere program and may not contain all information available regarding this patient. Last updated 18.[employer] Allergies No known active allergies Medications * Be aware that medications may not be up to date on this document. Alwaysverify current medications with the patient. hydrOXYzine pamoate (VISTARIL) 25 MG capsule Take 1 capsule by mouth 3 times daily as needed 20 capsule 06/14/2020 Active Social History Tobacco Use Types Packs/Day Years Used Date Smoking Tobacco: Never Assessed Smokeless Tobacco: Never Comments Unknown Sex and Gender Information Value Date Recorded Sex Assigned at Not on file Legal Sex Female 2:38 PM CDT Gender Identity Not on file Sexual Orientation Not on file Last Filed Vital Signs Vital Sign Reading Time Taken Comments Blood Pressure 126/80 06/14/2020 6:15 PM LEGAL AID Pulse 72 06/14/2020 6:15 PM LEGAL AID Temperature - - Respiratory Rate 16 06/14/2020 6:15 PM LEGAL AID Oxygen Saturation 98% 06/14/2020 6:15 PM LEGAL AID Inhaled Oxygen Concentration - - Weight - - Height - - Body Mass Index - - Plan of Treatment Health Maintenance Due Date Last Done Comments COLOGUARD (AGES 45-75) - COL ON CA SCREENING 1978 COLON MONITORING 1978 COLONOSCOPY - COLON CA SCREENING 1978 CT COLONOGRAPHY - COLON CA SCREENING 1978 Colorectal Cancer Screening 1978 FIT - COLON CA SCREENING 1978 FLEX SIG - COLON CA SCREENING 1978 LIPID TESTING 1978 MAMMOGRAM 1978 HIV SCREENING 1993 HEPATITIS C SCREENING 10/11/1996 DTAP/TDAP/TD VACCINES (1 - Tdap) 1997 HEPATITIS B VACCINE (1 of 3 - 19+ 3-dose series) 1997 PAP SMEAR 10/17/1999 DEPRESSION SCREENING 08/05/2024 COVID-19 VACCINE (1 - 2023-2 5 season) 2025 INFLUENZA VACCINE (#1) 2025 ZOSTER VACCINE (1 of 2) 2028 HIB VACCINE Aged Out No longer eligi ble based on patient's age to complete this topic HPV VACCINE Aged Out No longer eligi ble based on patient's age to complete this topic MENINGOCOCCAL (Group B) VACC INE SHARED DECISION-MAKING Aged Out No longer eligibl e based on patient's age to complete this topic MENINGOCOCCAL GROUPS A/C/Y/W VACCINE Aged Out No longer eligible b ased on patient's age to complete this topic PNEUMOCOCCAL VACCINE Aged Out No long er eligible based on patient's age to complete this topic Insurance AETNA AETNA AETNA
--- OUTSIDE RECORDS SUMMARY | 2025-04-13 11:21 | XMS_ITS | Encounter Summary ---
Author Organization [facility] Address [address] [place] [address] Care Team Providers Care Quality Improvement Coordinator Name Role Phone Unavailable Primary Care Provider Unavailabl e Encounter Details Date Type Department Care Team (Late st Contact Info) Description 06/02/2024 Lab Requisition [facility] - DermPath Lab [address] [place] [id number] Hemalatha King PA [address] [place] [id number] Neoplasm of uncertain behavior of skin Social History Tobacco Use Types Packs/Day Years Used Date Smoking Tobacco: Never Assessed Smokeless Tobacco: Never Comments Unknown Sex and Gender Information Value Date Recorded Sex Assigned at Not on file Legal Sex Female 2:38 PM CDT Gender Identity Not on file Sexual Orientation Not on file documented as of this encounter Plan of Treatment Not on file documented as of this encounter Procedures Procedure Name Priority Date/Time Associated Diagnosis Comments DERMATOPATHOLOGY Routine 06/02/2024 12:0 0 AM CDT Neoplasm of uncertain behavior of skin documented in this encounter Results * DERMATOPATHOLOGY (06/02/2024 12:00 AM CDT) Case Report Dermatopathology Report Case: [id number] Authorizing Provider: Hemalatha King PA Collected: 06/02/2024 12:00 AM Ordering Location: [facility] - Received: 06/03/2024 12:47 PM DermPath Lab Pathologist: Inna Ku MD Specimen: Skin, left elbow 2:20 PM CDT DERMATOPATHOLOGY LABORATORY Final Diagnosis Specimen A. SKIN, left elbow: INTRADERMAL MELANOCYTIC NEVUS WITH CONGENITAL FEATURES (D22.9) 2:20 PM CDT DERMATOPATHOLOGY LABORATORY at 1420 CDT Clinical History Inflamed nevus 2:20 PM CDT DERMATOPATHOLOGY LABORATORY Gross Description Specimen A: Received is one formalin filled container labeled with the patient's name and designated left elbow. The specimen consists of a shave biopsy measuring 4x4x1 mm. Jar 0. 2:20 PM CDT DERMATOPATHOLOGY LABORATORY Microscopic Description Specimen A. SKIN, left elbow: There are nests of cytologically bland melanocytes within the dermis. Some of these melanocytes are concentrated around blood vessels and adnexal structures. 2:20 PM CDT DERMATOPATHOLOGY LABORATORY Disclaimer An external and internal positive and negative controls are appropriate for the histochemical, immunohistochemical and immunofluorescence stain(s) in this case (if any), except where stated explicitly. The performance characteristics of the stain(s) cited in this report were developed and its performance characteristic determined by the Dermatopathology Laboratory at [facility], directed by Dr. Mickey Perez. These tests need not be, and therefore are not, approved by the [place] Food and Drug Administration. The tests are used for clinical purposes. Billing Codes Specimen Charges Stain Charges 87917 1 2:20 PM CDT DERMATOPATHOLOGY LABORATORY Embedded Images 2:20 PM CDT DERMATOPATHOLOGY LABORATORY Pathology/Cytolog y TISSUE SPECIMEN FROM SKIN / Unknown 06/02/2024 06/03/2024 12:47 PM CDT [facility] - PATHOLOGY/CYTOLOGY OR DERABLES Final Result DERMATOPATHOLOGY LABORATORY [facility] - Department of Dermatology [address] [phone] documented in this encounter Visit Diagnoses Diagnosis Neoplasm of uncertain behavior of skin documented in this encounter
--- OUTSIDE RECORDS SUMMARY | 2025-04-13 11:24 | XMS_ITS | Clinical Summary ---
Author Organization [facility] Address [address] [place] [id number] Care Team Providers Care Supervisor Machining Name Role Phone Kay Mccormack Primary Care Provider Allergies No known active allergies Medications Multiple Vitamin (MULTI-VITAMIN DAILY OR) Take by mouth daily. Active Bee Pollen 500 MG Chew Tab Chew by mouth nightly as needed. Active estradiol (ESTRACE) 1 MG tablet Take 1 tablet (1 mg total) by mouth daily. 01/20/2024 Active Active Problems No known active problems Immunizations Immunization Administration Dates Next Due Tdap (Generic) 03/04/2013 Family History Medical History Relation Comments Cancer Mother Stroke Mother Relation Status Comments Mother Social History Tobacco Use Types Packs/Day Years Used Date Smoking Tobacco: Never Smokeless Tobacco: Never Tobacco Cessation:Counseling Given: No Alcohol Use Standard Drinks/Week Comments Never 0 (1 standard drink = 0.6 oz pur e alcohol) AUDIT-C Answer Date Recorded Frequency of Alcohol Consumption Never 09/22/2019 Average Number of Drinks Not on file 020 Frequency of Binge Drinking Not on file 09/05 PHQ-2 Answer Date Recorded PHQ-2 Score - If the patient scores above 3, please move on to questions 3-9 0 05/29/2021 Comments No Sex and Gender Information Value Date Recorded Sex Assigned at Not on file Legal Sex Female 2:41 PM CDT Gender Identity Not on file Sexual Orientation Not on file Last Filed Vital Signs Vital Sign Reading Time Taken Comments Blood Pressure 121/84 11/14/2024 8:01 PM CDT Pulse 72 11/14/2024 8:01 PM CDT Temperature 36.7 C (98.1 F) 11/14/2024 7:00 PM CDT Respiratory Rate 20 11/14/2024 8:01 PM CDT Oxygen Saturation 97% 11/14/2024 8:01 PM CDT Inhaled Oxygen Concentration - - Weight 93 kg (205 lb) 11/14/2024 5:27 PM CDT Height 163.8 cm (5' 4.5) 11/14/2024 5:27 PM CDT Body Mass Index 34.64 11/14/2024 5:27 PM CDT Plan of Treatment Health Maintenance Due Date Last Done Comments Colorectal Cancer Screening Colonoscopy (10 Years) 1978 Annual Physical 1981 Hepatitis C 1996 Hepatitis B Vaccines (1 of 3 - 19+ 3-dose series) 1997 DTaP, Tdap and Td Vaccines ( 2 - Td or Tdap) 03/04/2023 03/04/2013 Mammogram Screening 07/31/2023 07/31/2021, 06/26/2021 PHQ-2 (Physician [place]) 08/05/2024 COVID-19 Vaccine (3 - 2024-2 6 season) 2025 11/08/2020, 10/17/2020 Meningococcal B Vaccine Aged Out No l onger eligible based on patient's age to complete this topic Meningococcal Vaccine Aged Out No priscila dave eligible based on patient's age to complete this topic Pneumococcal Vaccine: Pediatrics (0 to 5 Years) and At-Risk Patients (6 to 49 Years) Aged Out No longer eligible b ased on patient's age to complete this topic RSV Immunizations Under 20 Months Aged Out No longer eligible b ased on patient's age to complete this topic Procedures Procedure Name Priority Date/Time Associated Diagnosis Comments MG DIAG W JESÚS RT DIGI Routine 07/31/2021 2:41 PM DIRECTOR PRODUCT DEVELOPMENT Abnormal mammogram of right breast from Last 3 Months or Most Recently Relevant to Health Maintenance Results * MG DIAG W JESÚS RT DIGI (07/31/2021 2:41 PM DIRECTOR PRODUCT DEVELOPMENT) Anatomical Region Laterality Modality Breast Right Mammography, Rad iographic Imaging 07/31/2021 3:08 PM DIRECTOR PRODUCT DEVELOPMENT Narrative 07/31/2021 3:10 PM DIRECTOR PRODUCT DEVELOPMENT RIGHT BREAST DIAGNOSTIC MAMMOGRAPHY WITH TOMOSYNTHESIS AND COMPUTER AIDED DETECTION: MG [place] W JESÚS RT DIGI CLINICAL HISTORY: abnormal mammogram on 07/03/2021 . COMPARISON STUDIES: 06/26/2021. FINDINGS: Right spot compression views in the CC and MLO projection, right ML 2-D and 3-D acquisitions demonstrate heterogeneously dense glandular parenchyma, the focal asymmetry is difficult to distinguish from the overlying parenchyma. Same-day ultrasound confirms a classic appearing lymph node in the area abnormality explaining the findings. CONCLUSION: 1. BI-RADS Category 0 - needs additional imaging evaluation. 2. BREAST TISSUE COMPOSITION: The breast tissue is heterogeneously dense, which may obscure small masses. MQSA BI-RADS Categories: Category 0 - needs additional imaging evaluation. Category 1 - negative. Category 2 - benign findings. Category 3 - probably benign findings, but short interval follow-up is recommended. Category 4 - suspicious abnormality and biopsy should be considered though the lesion may well be benign. Category 5 - highly suggestive of malignancy and appropriate action should be taken. A) A negative report should not delay a biopsy if a dominant or clinically suspicious mass is present. B) Adenosis and dense breasts may obscure an underlying neoplasm. C) Study interpreted with computer aided detection. Voice recognition software utilized. Ordered By: KAY MCCORMACK Interpreted By: Steven Clark, 07/31/2021 3:08 PM Kay Mccormack [place] MAMMO Final Result from Last 3 Months or Most Recently Relevant to Health Maintenance Insurance AETNA Care Teams Supervisor Machining Relationship Specialty [place] [address] [place] [address] PCP - General PHYSICIAN SHEET METAL APPRENTICE 05/29/21
== END 2025-04-13 10:30 | disposition home or self-care (01) ==
PROVIDERS: Emergency Provider Registered Nurse
DX: B37.31 Acute candidiasis of vulva and vagina (principal); R10.30 Lower abdominal pain, unspecified
CPT/HCPCS: 81003; 87086; 99213; G0463

== ENCOUNTER 2025-06-15 08:57 | Emergency (ER) | payer OTHER, SELFPAY ==
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
--- NOTE | 2025-06-15 09:02 | ED.URI ---
HPI - URI/Sore Throat General Chief Complaint: Upper Respiratory Infection Stated Complaint: URI Time Seen by Provider: 06/15/25 09:01 Source: patient Mode of arrival: ambulatory Limitations: no limitations History of Present Illness HPI Narrative: Patient is a 44-year-old female who presents with 3 days of headache, sinus pressure, congestion, drainage, fatigue, hoarse voice and intermittent slight cough. Denies any sore throat, ear pain, fever, chills, nausea, vomiting, diarrhea. Patient has taken DayQuil, NyQuil and severe sinus and cold. Related Data Home Medications ?Medication ?Instructions ?Recorded ?Confirmed ?Last Taken ?Type estradiol 1 mg tablet 1 mg PO DAILY 05/16/23 06/15/25 Unknown History Allergies Allergy/AdvReac Type Severity Reaction Status Date / Time No Known Allergies Allergy Mild Verified 06/15/25 09:20 Review of Systems Review of Systems: All systems reviewed & are unremarkable except as noted in HPI and below Constitutional: Constitutional: Denies chills, Denies fatigue, Denies fever(s), Reports headache(s), Denies malaise and Denies weakness Eyes: Eyes: Denies blurry vision, Denies itchy eyes and Denies loss of vision ENT: Denies otalgia, Reports headache(s), Reports nasal congestion, Denies sinus pain, Reports sinus pressure and Denies sore throat Cardiovascular: Cardiovascular: Denies chest pain, Denies irregular heart rhythm and Denies dyspnea Respiratory: Respiratory: Reports cough and Denies dyspnea Gastrointestinal: Gastrointestinal: Denies abdominal pain, Denies diarrhea, Denies nausea and Denies vomiting Musculoskeletal: Musculoskeletal: Denies back pain, Denies myalgias and Denies arthralgias Integumentary/Breasts: Skin/Breast: Denies pruritus and Denies rash Neurologic: Reports headache(s), Denies loss of vision and Denies weakness Psychiatric: Psychiatric: Reports no additional psychiatric complaints Endocrine: Endocrine: Denies fatigue Allergic/Immunologic: Allergic/Immunologic: Denies itchy eyes PMFSH Past Medical History Medical History Abnormality of left breast on screening mammogram Breast mass, left Family history of colon cancer in mother Fibroid uterus Myoma Eczema Surgical History Surgical History H/O: hysterectomy Family History Family History Mother Carcinoma of colon Grandparent Family history of diabetes mellitus in first degree relative Social History Social History Second hand tobacco smoke exposure: No Alcohol intake: never Substance use: never Substance use type: does not use Living arrangements: with family Spiritual care concerns: No Comments At time of signature, agree with nursing past medical, surgical, social and family history. There is no relevant family history pertinent to the presenting complaint. Exam Const: General: cooperative, healthy appearing, comfortable, no acute distress and well nourished Nutritional Appearance: well nourished Orientation/consciousness: patient oriented x3 Limitations: no limitations HENMT: Head: normal to inspection, normocephalic and atraumatic Ears: hearing grossly normal bilaterally, external ears normal, TM's normal bilaterally, EAC's normal and no periauricular adenopathy Face/Nose/Sinus: Normal external nose present, Abnormal mucous membranes and turbinates present erythematous bilateral and diffuse, normal facial exam, sinuses nontender and face symmetric Face and sinus: normal facial exam, sinuses nontender and face symmetric Mouth: Yes Normal oral and palatal mucosa present, Yes lip normal, Yes tongue normal, Yes Normal salivary glands and ducts present, Yes oropharynx normal and Yes moist mucous membranes Teeth and gingiva: dentition normal Throat: posterior oropharynx normal, tonsils normal and uvula midline Eyes: General: appearance normal, both eyes and all related structures Alignment and Position: alignment normal and position normal Periorbital: periorbital findings normal Eyelids: eyelids normal Pupils: Equal, round and reactive pupils present Neck: Neck: normal visual inspection, full ROM, no lymphadenopathy and supple Chest: Chest palpation & inspection: normal inspection of the chest and normal palpation of entire chest wall Resp: Effort & Inspection: normal respiratory effort and able to speak in complete sentences Auscultation: clear to auscultation bilaterally, no crackles, no rales, no rhonchi and no wheezes Cardio: Rate: regular rate Rhythm: regular rhythm Heart sounds: S1 normal heart sound present and S2 normal heart sound present GI: Inspection: normal to inspection Skin: General skin exam: normal color and no rashes or lesions noted Neuro: General: patient oriented x3 and moves all extremities Cranial nerves: Yes Equal, round and reactive pupils present Speech: normal speech Gait exam (Neuro): Normal gait present Extrem: General: normal to inspection, full ROM and no edema Psych: Appearance: grossly normal and well kempt Mental Status: mental status grossly normal Speech and movement: Normal speech and movement present Affect: normal affect Attitude: cooperative Thought process: Normal thought process present Course Course Emergency Course: Discharge instructions reviewed with patient, as well as provided in writing per nursing staff. The instructions also include specific and strict return/GO TO THE ER as well as f/u information. All questions have been answered, and the patient deny any further questions with discharge and discharge plan. Portions of this record may have been created with voice recognition software Level of Care: Express Care Visit Vital Signs Vital signs: Vital Signs Temperature 36.4 C L 06/15/25 09:07 Pulse Rate 71 06/15/25 09:07 Respiratory Rate 18 06/15/25 09:07 Blood Pressure 126/74 06/15/25 09:07 Pulse Oximetry 99 06/15/25 09:07 Oxygen Delivery Room Air 06/15/25 09:07 Temperature 36.4 C L 06/15/25 09:07 Pulse Rate 71 06/15/25 09:07 Respiratory Rate 18 06/15/25 09:07 Blood Pressure 126/74 06/15/25 09:07 Pulse Oximetry 99 06/15/25 09:07 Oxygen Delivery Room Air 06/15/25 09:07 Reviewed MDM - URI/Sore Throat MDM Narrative Medical decision making narrative: Will send in Flonase and suggest other symptom management options. Offered Tessalon Perles but patient declined as she is seeing her cough is mild and not keeping her up. Patient asked about antibiotics and explained that it is viral in nature and symptoms will last anywhere from 5-10 days. Offered testing to patient but did explain that it would not change course of treatment as we are outside the window for antivirals, patient declined testing. Did not do strep test as patient is not having fever or sore throat. Pt well hydrated appearing, in no respiratory distress, hemodynamically stable. Recommend supportive care. The patient is stable at time of discharge the clinical impression was discussed and the patient was given the opportunity to ask questions, which were addressed as completely as possible given the information available at present. Anticipatory guidance and return to care precautions were discussed and the importance of primary care follow-up was stressed and encouraged. The patient voiced understanding of the plan, indications to return, and the need for follow-up. Exam findings show no acute concerns or changes Patient is appropriate for outpatient treatment and follow-up. Differential diagnosis considered: [place] virus, strep pharyngitis, allergic rhinitis, upper respiratory tract infection, sinusitis, rhinosinusitis, nasopharyngitis. viral pharyngitis, otitis media, otitis externa, otitis effusion, foreign body, cerumen impaction, viral syndrome, and influenza.? Medical Records Attestation: I reviewed the patient's medical records. Discharge Plan Discharge Clinical Impression: URI (upper respiratory infection) Qualifiers: URI type: unspecified viral URI Qualified Code(s): J06.9 - Acute upper respiratory infection, unspecified Patient Disposition: Home Condition: Stable Instructions: Upper Respiratory Infection (ED) Additional Instructions: Your symptoms are likely due to a viral illness, which is not treated with antibiotics. Viral symptoms can be present for up to a few weeks. -For pain/fever, you may take: Tylenol 650-1000mg by mouth every 4-6 hours. Do not exceed 4000mg in 24 hours. Advil (Ibuprofen) 600 mg by mouth every 6 hours. Do not exceed 2400mg in 24 hours. 8 AM: Tylenol 11 AM: Ibuprofen 2 PM: Tylenol 5 PM: Ibuprofen 8 PM: Tylenol 11 PM: Ibuprofen 2 AM: Tylenol 5 AM: Ibuprofen -Antihistamine medication such as Benadryl/Zyrtec at night and Claritin/Akndi during the day can help improve symptoms. -Use Flonase twice a day for 5 days then daily to help reduce the inflammation and dry up your sinuses. -You can also use Sudafed behind the pharmacy counter(12 or 24 hour). Be sure to drink plenty of water with these medications at least 8 ounces with every dose and it is important to drink 8 to 10 glasses of water per day. Water is a natural decongestant -Eat and drink things that are easy to swallow, like tea or soup, or popsicles. -Oral rinses such as: Salt water gargles and/or may use topical anesthetic (eg. Chloraseptic spray) or lozenges to relieve dryness or throat pain). -Frequent hand washing or hand geospatial intelligence analyst is one of the best ways to prevent spread of infection. -Using a vaporizer or humidifier at night will also help thin secretions and help with coughing up phlegm. Call your Primary Care Doctor and make a follow-up appointment in 3 days. If your cough worsens, you develop a fever greater than 103, you develop shaking chills, a fast heartbeat, trouble breathing and/or feel you are are breathing much faster than usual, call your Primary Care Doctor or go to the ER. Patient Language: Slovenian Prescriptions: New fluticasone propionate [Flonase Allergy Relief] 50 mcg/actuation spray,suspension 1 spray intranasal DAILY Qty: 16 0RF Rx Instructions: administer into each nostril No Action estradiol 1 mg tablet 1 mg PO DAILY Follow-up/Referrals: Chung Palacios MD [Physician, Family Practice] - 3 Days Time of Disposition: 09:28
[2025-06-15 09:07] VITALS: BP 126/74; PULSE 71; RESP 18; TEMP 36.4; O2SAT 99
--- OUTSIDE RECORDS SUMMARY | 2025-06-15 09:12 | XMS_ITS | Data Portability ---
Author Organization [facility], PCDebbie Johnson Address [address] [place] [address] Assessment No assessment recorded. Plan of Treatment Reminders Order Date Submit Date Provider Last Modified By Organization Details Last Modified Time Details Appointments None recorded. Lab None recorded. Referral None recorded. Procedures None recorded. Surgeries None recorded. Imaging None recorded. Medication Orders metronidazo le 0.75 % (37.5 mg/5 gram) vaginal gel 2022 023 [facility] #[id number], [address], [address], 3 03:34:38 triamcinolo ne acetonide 0.5 % topical cream 2021 022 [facility] #[id number], [address], [address], 3 14:16:15 Medrol (Tyler) 4 mg tablets in a dose pack 2021 022 [facility] #[id number], [address] [facility] [address] [place] [address], [address], 3 14:16:11 Patient TargetsNo targets recorded. Patient InstructionsNo instructions recorded. Reason for Referral None Reported. Results Created Date Observation Date Name Description Value Unit Range Abnormal Flag Note LastModifiedBy Organization Detail LastModifiedTime 09/10/1909/10/2022 VAGIN ITIS/ VAGIN OSIS, DNA PROBE maritza sp. detection, direct probe Negati ve negati ve Not Available [facility] (Lab) [address] [facility], [place], [address], 09/11/2022 21:27:08 09/10/19 23 09/10/2022 VAGIN ITIS/ VAGIN OSIS, DNA PROBE gardnerella vag. detection, direct probe Negati ve negati ve Not Available [facility] (Lab) [address] [facility], [place], [address], 09/11/2022 21:27:08 09/10/19 23 09/10/2022 VAGIN ITIS/ VAGIN OSIS, DNA PROBE trichomonas vag. detection, direct probe Negati ve negati ve Not Available [facility] (Lab) [address] [facility], [place], [address], 09/11/2022 21:27:08 08/17/19 23 07/31/2021 MAMMO , scree roseanna, bilat eral No observ ation record ed. [email or web address] [facility] [address] [place], [address], 12/13/2022 15:41:43 08/17/19 23 07/31/2021 MAMMO , scree roseanna, bilat eral No observ ation record ed. [email or web address] [facility] [address], [place], [address], 08/28/2022 15:02:04 08/17/19 23 07/31/2021 MAMMO , scree roseanna, bilat eral No observ ation record ed. [email or web address] [facility] [address], [place], [address], 08/27/2022 16:54:51 08/20/19 23 07/31/2021 MAMMO , diagn ostic , digit al, bilat eral No observ ation record ed. [email or web address] [facility] [address] [facility] [address], [place], [address], 12/13/2022 15:42:03 08/20/1907/31/2021 MAMMO , diagn ostic , digit al, bilat eral No observ ation record ed. [facility] [address], [place], [address], 08/21/2022 12:05:40 10/05/1910/04/2022 MAMMO , scree roseanna, bilat eral No observ ation record ed. [facility] [address] [facility], [place], [address], 10/08/2022 13:12:38 Result Notes None recorded. Problems Name Problem SNOMED Code Status Onset Date Resolution Date Notes Provider Name and Address Organization Details Recorded Time Removal of intraute rine device Completed 201011/11/2020 REMOVAL OF IUD;Prac latosha ID: 0001 Alexandra gomez [facility] 16:25:47 Speciali zed medical examinat ion Completed 201211/11/2020 Gynecolo gical Examinat ion;Tristin rded Elsewher e: No Locat ion: [facility] S ource: EHR Information Systems Analyst gina: N Practi ce ID: 0001 Rell lable Time: 01:00:00 PM Alexandra gomez [facility] 16:25:55 Screenin g for malignan t neoplasm of cervix Completed 201211/11/2020 Screenin g for malignan t neoplasm s of the cervix;R ecorded Elsewher e: No Locat ion: [facility] S ource: EHR Information Systems Analyst gina: N Practi ce ID: 0001 Rell lable Time: 01:00:00 PM Alexandra gomez [facility] 16:25:48 Breast lump [id number] Completed 201211/11/2020 Lump or mass in breast;P ractice ID: 0001 Alexandra gomez [facility] 16:25:32 Pregnanc y test negative [id number] Completed 201211/11/2020 Pregnanc y examinat ion or test, negative result;R ecorded Elsewher e: No Locat ion: [facility] S ource: EHR Information Systems Analyst gina: N Practi ce ID: 0001 Rell lable Time: 03:30:00 PM Alexandra Lindsay [facility] 16:25:44 Dysfunct ional uterine bleeding Completed 201211/11/2020 DUB;Macy latosha ID: 0001 [facility]:25:36 Female genital organ symptoms [id number] Completed 201211/11/2020 Unspecif ied symptom associat ed with female genital organs;R ecorded Elsewher e: No Locat ion: [facility] S ource: EHR Information Systems Analyst gina: N Practi ce ID: 0001 Rell lable Time: 03:30:00 PM Alexandra gomez [facility] 16:25:37 Cyst of ovary [id number] Completed 201211/11/2020 OVARIAN CYST;Pra ctice ID: 0001 [facility] 16:25:35 Adult health examinat ion Completed 201311/11/2020 ROUTINE MEDICAL EXAM;Rec orded Elsewher e: No Locat ion: [facility] S ource: EHR Information Systems Analyst gina: N Practi ce ID: 0001 Rell lable Time: 09:30:00 AM Alexandra Lindsay [facility] 16:25:[address] Concept Completed 201511/11/2020 Encntr for general adult medical exam w/o abnormal findings ;Recorde d Elsewher e: No Locat ion: Gregoria lainez [facility] S ource: EHR Information Systems Analyst gina: N Practi ce ID: 0001 Rell lable Time: 08:30:00 AM Alexandra gomez, [facility] 16:25:[address] Concept Completed 201611/11/2020 Encntr for chef french exam (general ) (routine ) w/o abn findings ;Recorde d Elsewher e: No Locat ion: [facility] S ource: EHR Information Systems Analyst gina: N Practi ce ID: 0001 Rell lable Time: 09:45:00 AM Alexandra Lindsay [facility], [facility] 16:25:53 Hirsutis m [id number] Completed 201611/11/2020 Hirsutis m;Record ed Elsewher e: No Locat ion: [facility] S ource: EHR Information Systems Analyst gina: N Practi ce ID: 0001 Rell lable Time: 09:45:00 AM Alexandra Lindsay [facility], [facility] 16:25:41 Finding of general energy 703704183 Completed 201611/11/2020 Fatigue; Recorded Elsewher e: No Locat ion: [facility] S ource: EHR Information Systems Analyst gina: N Practi ce ID: 0001 Rell lable Time: 09:45:00 AM Alexandra Lindsay [facility], [facility] 16:25:[address] Concept Completed 201811/11/2020 Encounte r for general adult medical exam with abnormal finding; Recorded Elsewher e: No Locat ion: [facility] S ource: EHR Information Systems Analyst gina: N Practi ce ID: 0001 Rell lable Time: 01:00:00 PM Alexandra Lindsay [facility], [facility] 16:25:45 Mass of left breast [id number] 022551 Completed 201811/11/2020 Lump in the left breast;R ecorded Elsewher e: No Locat ion: [facility] Practi ce ID: 0001 Rell lable Time: 01:00:00 PM Alexandra gomez [facility] 16:25:43 Screenin g for malignan t neoplasm of rectum Completed 201811/11/2020 Encounte r for screenin g for malignan t neoplasm of rectum;R ecorded Elsewher e: No Locat ion: [facility]: N Practi ce ID: 0001 Rell lable Time: 01:00:00 PM Alexandra Lindsay [facility] 16:25:49 Evaluati on finding Completed 201811/11/2020 Oth abn and inconclu sive findings on dx imaging of breast;R ecorded Elsewher e: No Locat ion: [facility]: N Practi ce ID: 0001 Rell lable Time: 01:00:00 PM Alexandra gomez [facility] 16:25:[address] Concept Completed 201811/11/2020 Encounte r for general chef french exam with abnormal findings ;Recorde d Elsewher e: No Locat ion: [facility]: N Practi ce ID: 0001 Rell lable Time: 01:00:00 PM Alexandra Lindsay [facility] 16:25:52 Problem Notes None recorded. Procedures Surgical History Date Name Laterality Status Provider Name and Address Organization Details Recorded Time 05/10/20 ROBOTIC ASSISTED HYSTERECTOMY WITH SALPINGECTOMY (SURG) completed Ariana Russ [facility] 05/11/2022 10:44:57 03/06/20 22 Date of Last Pap Smear completed Roseanne Yo [facility] 03/06/2022 11:51:01 12/16/19 19 Date of Last Mammogram completed Alexandra Lindsay [facility] 11/14/2020 09:37:14 Imaging Results None recorded. Procedure Notes None recorded. Medical Equipment None Reported. Allergies No known drug allergies Medications Name Sig Start Date Stop Date Status Note LastModified by Organization Details LastModified Time triamcino lone acetonide 0.5 % topical cream APPLY THIN COAT TO AFFECTED AREA TWICE A DAY 09/10 completed Not Available Not Available Not Available hydrocodo ne 5 mg-acetam inophen 325 mg tablet 09/10 completed Not Available Not Available Not Available metronida zole 0.75 % (37.5 mg/5 gram) vaginal gel INSERT 1 APPLICAT ORFUL VAGINALL Y EVERY DAY FOR 5 DAYS active Not Available Not Available No t Available triamcino lone acetonide 0.1 % topical cream 11/14 completed Not Available Not Available Not Available amoxicill in 875 mg tablet ONE TABLET BY MOUTH EVERY 12 HOURS 09/10 completed Not Available Not Available Not Available amoxicill in 250 mg capsule take 1 capsule by oral route every 8 hours 11/11 completed Prescrib ed Elsewher e: Yes Loca tion: [facility] M odify By: joe beverly DateTime : 12/16/19 19 01:00:00 PM Not Available Not Available Not Available prednison e 5 mg tablets in a dose pack 11/14 completed Not Available Not Available Not Available methylpre dnisolone 4 mg tablets in a dose pack TAKE 6 TABLETS ON DAY 1 DIRECTED ON PACKAGE AND DECREASE BY 1 TAB EACH DAY FOR A TOTAL OF 6 DAYS 09/10 completed Not Available Not Available Not Available hydroxyzi ne pamoate 25 mg capsule 11/14 completed Not Available Not Available Not Available neomycin- polymyxin -hydrocor t 3.5 mg-10,000 unit/mL-1 % ear drops,mariya p INSTILL 4 DROPS INTO EACH EAR EVERY 8 HOURS FOR 10 DAYS 09/10 completed Not Available Not Available Not Available 08/24 (28) 1 mg-20 mcg (21)/75 mg (7) tablet TAKE 1 TABLET BY MOUTH EVERY DAY 03/06 completed Not Available Not Available Not Available ID NOW COVID-19 Test Kit TEST DIRECTED 11/14 completed Not Available Not Available Not Available Vitals Date Recorded Body height Body mass index (BMI) Body weight Systolic And Diastolic Provider Name and Address Organization Details Last Updated DateTime 09/10/2022 172.72 cm 31.8 kg/m2 90473.81 g 120/80 mm[Hg] Debbi [facility] 09/10/2022 14:15:56 Date Recorded Body height Body mass index (BMI) Body weight Systolic And Diastolic Provider Name and Address Organization Details Last Updated DateTime 05/21/2022 172.72 cm 31.5 kg/m2 29376.62 g 120/76 mm[Hg] [facility] 05/21/2022 10:20:55 Date Recorded Body height Body mass index (BMI) Body weight Systolic And Diastolic Provider Name and Address Organization Details Last Updated DateTime 06/21/2022 172.72 cm 31.3 kg/m2 79601.03 g 133/84 mm[Hg] [facility] 06/21/2022 11:57:45 Date Recorded Body height Body mass index (BMI) Body weight Systolic And Diastolic Provider Name and Address Organization Details Last Updated DateTime 07/02/2022 172.72 cm 31.5 kg/m2 91624.62 g 132/83 mm[Hg] [facility] 07/02/2022 13:04:42 Social History Question Answer Notes LastModified by Organizat ion Details LastModified Time Tobacco Smoking Status Never [facility] 11/14/2020 14:25:30 Do You Have An Advance Directive? No [email or web address] Information n ot available 11/14/2020 Are You Blind Or Do You Have Difficulty Seeing? No [email or web address] Information n ot available 11/14/2020 What Is Your Level Of Caffeine Consumption? Moderate [email or web address] Information not available 11/14/2020 How Much Tobacco Do You Chew? None [email or web address] Information not available 11/14/2020 In The 14 Days Before Symptom Onset, Have You Had Close Contact With A Laboratory-confirm ed COVID-19 While That Case Was Ill? No [email or web address] Information n ot available 11/14/2020 In The 14 Days Before Symptom Onset, Have You Had Close Contact With A Person Who Is Under Investigation For COVID-19 While That Person Was Ill? No [email or web address] Information not available 11/14/2020 Have You Been To An Area Known To Be High Risk For COVID-19? No Information not available 11/14/2020 Are You Deaf Or Do You Have Serious Difficulty Hearing? No [email or web address] Information not available 11/14/2020 What Type Of Diet Are You Following? REGULAR [email or web address] Information n ot available 11/14/2020 What Is The Highest Grade Or Level Of School You Have Completed Or The Highest Degree You Have Received? [id number] Information not available 11/14/2020 Are There Any Guns Present In Your Home? No [email or web address] Information not available 11/14/2020 Do You Use Protection During Sex? No [email or web address] Information not available 11/14/2020 Do You Use Your Seat Belt Or Car Seat Routinely? Yes [email or web address] Information not available 11/14/2020 Do You Have Smoke And Carbon Monoxide Detectors In Your Home? Yes Information not available 11/14/2020 How Much Tobacco Do You Smoke? No [email or web address] Information not available 11/14/2020 Do You Use Sunscreen Routinely? No Information not available 11/14/2020 Has Tobacco Cessation Counseling Been Provided? No [email or web address] Information not available 03/06/2022 Have You Used IV Drugs? No Information not available 11/14/2020 Do You Have Difficulty Walking Or Climbing Stairs? No [email or web address] Information not available 03/06/2022 Sex: Unknown Functional Status Question Answer Note LastModified by Organizat ion Details LastModified Time Do you use any illicit or recreational drugs? No [email or web address] Information not available 11/14/2020 Do you or have you ever used any other forms of tobacco or nicotine? No [email or web address] Information not available 03/06/2022 What is your level of alcohol consumption? Occasional [email or web address] Information not available 03/06/2022 Are you able to walk independently without assistance or assistive devices? [email or web address] Information not available 11/14/2020 Are you able to care for yourself independently? 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 No [email or web address] Information not available 03/06/2022 What is your exercise level? Occasional Information not available 11/14/2020 Mental Status Question Answer Note LastModified by Organization D etails LastModified Time Do you feel stressed (tense, restless, nervous, or anxious, or unable to sleep at night)? [id number] [email or web address] Information not available 11/14/2020 Family History Relationship Description Onset Age of this Age Resolved Age Notes LastModified by Organization Details LastModified Time Mother Disorder of thyroid gland [email or web address] Not available 2020 16:31:27 Medical History Condition Response Allergies (Food, seasonal, environmental ) N Other N Breast Cancer N Drug/Latex Allergies/Reactions N Blood Transfusion N Dermatologic Disorders N Lung Disease N Defects or Inherited Disease N Breast Problem N Gestational Diabetes N Hematologic disorders N Anesthesia Complications N History of STI N Deep Vein Thrombosis N Polycystic ovary syndrome N Anxiety Disorder N Autoimmune disease N Arthritis N Infertility N Polyps N Acid Reflux (GERD) N History of abnormal pap N Cancer N Stroke N Varicosities N Neurologic/Epilepsy N Endometriosis N High Cholesterol N Headaches N Fibromyalgia N Kidney Disease N Heart Problems N Kidney or Bladder Problems N Thyroid Problems N GI Problems N Eating Disorder N Anemia N Art (IVF or FET) N Psychiatric Illness N Ovarian Cancer N Diabetes N Pulmonary (TB, Asthma) N Hepatitis/Liver Disease N No Past Medical History N Eczema N Urinary Tract Infection N Abuse/Domestic Violence N Asthma N Trauma/Violence N Depression/ depression N Heart Disease N Pre-Eclampsia N Hypertension N Osteoporosis N Thrombophilias N Gynecological History Statement/Question Response Abnormal Pap N Date of Last Mammogram 12/15/2018 Date of LMP 10/29/2020 STIs/STDs N Date of Last Pap Smear 03/06/2022 Sexual Problems? N Current Control Method Hysterectom y LMP Approximate Obstetrics History GPAL:G 2 P 2 0 0 2 Type Value Full Term 2 Living 2 Total 2 Past Encounters Encounter ID Performer Location Encounter Start Date Encounter Closed Date Diagnosis/Indication Diagnosis SNOMED-CT Code Diagnosis ICD10 Code Diagnosis IMO Codes Diagnosis [facility] [id number] [facility] [address] [address] 11/14/2020 14:17:27 11/14/2020 17:30:14 Gynecologic examination [id number] Z01.419 Suggested Calcium with Vitamin D 1200-1500m g daily. Patient advised to get an annual flu shot in the fall and she could obtain at [facility] or [facility]. Also to obtain TDap vaccinatio n if you have not had one in the last 10 years. Recommend yearly mammograms . Encouraged monthly self breast exams. Encourage safe sexual practices, to use condoms and limit partners if not already in a monogamous relationsh ip. Engage in daily exercise of low impact aerobic exercise 45-60 minutes 4-5 times weekly. Avoid tobacco and illicit drugs as well as using moderation with alcohol intake less than 1-2 8 oz beverages daily. This lifestyle behavior pattern will lead to less health conditions and longer life span. If BMI greater than 25 weight watchers or dietary consult advised. All questions have been answered. Patient appears to understand informatio n, but if you have any questions please call or respond to this email. Mass of left breast [id number] N63.20 Left @ 12 o'clock 4cm from the nipple. 1x2cm lump. Right @ 5 o'clock 5cm from nipple 1x2cm. Diagnostic shala and u/s ordered. If nl will rtc in 6 weeks. If abnormal imaging will schedule with specialist david If nl imaging but lump persists at 6 week f/u will need to see specialist . It is of note she has seen a specialist in the past but not since 2019. Menorrhagia 222239723 N9 2.0 Pt has had a little increase in her cycle flow over the last year. It is not outside of normal limits. We have discussed options to help minimize her flow. Pt would like to try ocp. She is aware of the risks and benefits. She does not have any medical condition that is contraindi cated with the use of estrogen containing control. Pt will start her pills on the first saturday following the start of her period. She is aware it is not effective for control the first month. She is also aware of the importance of taking at the same time every day. Encouraged use of condoms as the pill does not protect against STD's. Will return in 3 months for med check. Consent was read and signed. Pt verbalized understand ing. [id number] Valentine Coy, [facility] [address],[facility] [place] [address] 03/06/2022 11:36:36 03/06/2022 12:22:28 Gynecologic examination 49557496 Z01.419 Z11.51 Suggested Calcium with Vitamin D 1200-1500m g daily. Patient advised to get an annual flu shot in the fall and she could obtain at [facility] or [facility] care clinic. Also to obtain TDap vaccinatio n if you have not had one in the last 10 years. Recommend yearly mammograms . Encouraged monthly self breast exams. Encourage safe sexual practices, to use condoms and limit partners if not already in a monogamous relationsh ip. Engage in daily exercise of low impact aerobic exercise 45-60 minutes 4-5 times weekly. Avoid tobacco and illicit drugs as well as using moderation with alcohol intake less than 1-2 8 oz beverages daily. This lifestyle behavior pattern will lead to less health conditions and longer life span. If BMI greater than 25 weight watchers or dietary consult advised. Mammogram in [place] 3 months ago. Found a lump and u/s was done. States it was normal and no biopsy needed. All questions have been answered. Patient appears to understand informatio n, but if you have any questions please call or respond to this email. Enlarged uterus [id number] N85.2 Enlarged uterus with heavy cycles. U/S ordered and will need MD follow up. Menorrhagia 563308242 N9 2.0 Pt still having heavy cycles. We discussed causes and treatment options but will need ultrasound evaluation first. Pt not really interested in ocp or IUD. Will discuss at follow up. [id number] Emery Grant MD [facility] [address],[facility] [place] [address] 03/16/2022 10:04:01 03/16/2022 11:01:03 Enlarged uterus [id number] N85.2 [id number] MD Hammad Judd [address] [address] 04/02/2022 14:09:31 04/02/2022 15:35:51 Menorrhagia 161976975 N92.0 Uterine leiomyoma 509386 05 D25.9 This patient is a 41year-old female presents for heavy vaginal bleeding. She has longstandi ng very heavy bleeding. Her menses are regular. However, they require double protection . Patient has accidents, getting blood on her bedding and clothing. Is affected work. She changes a pad or tampon every hour. She leaks blood around the pad and tampon. This bleeding has a profound impact on her quality of life and her activities of daily living. She also follows up for ultrasound results. There is a 7 cm uterine fibroid. She has an enlarged uterus. We discussed these findings. I showed pictures with her. We spent over 40 minutes face-to-fa ce. More than 50% was counseling . I described to her the etiology, natural history, treatment of uterine fibroids. We talked about medical and surgical options in great detail. She is considerin g total laparoscop ic or robotic hysterecto my with salpingect estrella. She is going to contact us if she wants to move forward. I described the procedure her. [id number] MD Hammad Judd [address] [address] 05/16/2022 10:22:51 05/16/2022 10:25:10 [id number] MD Hammad Judd [address],[facility] [place] [address] 05/21/2022 10:02:30 05/22/2022 10:29:47 Postoperative care [id number] Z48.89 t his patient is 41-year-ol d female presents for postop follow-up. She is recovering normally. She is 1 week postop from a robotic assisted total hysterecto my and bilateral salpingect estrella. She has no complaints . Her incisions are clean dry and intact. She will follow up as needed. [id number] Emery Grant MD [facility] [address],[place] [address] 06/21/2022 11:28:09 06/21/2022 12:33:23 Contact dermatitis 27767405 L25.9 patient is more than 6 week postop from hysterecto my. She has had a severe rash/react ion to the skin glue are the skin prep. Across her upper abdomen she has erythema vesicles. There is very many small vesicles skin closed around the incision sites. However the glue area is delineated sharply and there was little reaction under the area where the glue is placed. But there appears to be intense reaction around the glue. Posterior is. She is treated with a Medrol Dosepak and topical steroid. She is recovering normally from hysterecto my. She did not wait for her postop visit. She has considerab le anxiety and left for she was seen. [id number] Emery Grant MD [facility] [address],[place] [address] 07/02/2022 11:48:10 07/03/2022 15:26:30 Localized eruption of skin 535997469 R21 this patient is a 41-year-ol d female who presents for follow-up for a skin reaction to skin prep for her surgery. She had a hysterecto my. Weeks after the surgery she developed a serious pustular rash in the pattern of her skin incisions and her prep. She was treated with oral steroids and topical steroids. It is improved greatly. Skin appears to be healing. She has no more symptoms. We agreed to follow-up as needed. [id number] Emery Grant MD [facility] [address],[place] [address] 09/10/2022 14:02:15 09/10/2022 15:17:54 Bacterial vaginosis [id number] N76.0 41-year-ol d who reports foul-smell ing vaginal discharge. It has odor. Has a paniagua color. She has complaints diminished sensation in the vagina since hysterecto my. She is treated with Flagyl gel. She is about 3-4 months from hysterecto my. She should follow this problem for the next couple of months and see if she gets any sensation back to nerve healing. Exam of vaginal swab was performed. The vulva and distal vagina are normal. Health Concerns Section Related Observation LastModified by Organization Detai ls LastModified Time None Recorded Concern Status LastModified by Organization Details LastModified Time None Recorded Advance Directives Directive N: Payers Insurance Date Sequence Insurance Name Policy Number Policy Kimbrough Covered Member ID Kimbrough Member ID Guarantor Name 01/24/2023 1 [employer] (POS II) [id number] Rocael [place] [id number] Lucila S Flash [place] 11/03/2022 PAYMENT PLAN Lucila Vidales [place] 01/25/2023 PAYMENT PLAN Lucila Solorioil Notes Date Note Type Note Provider Name and Address Organization Details Recorded Time 05/21/2022 text/html this patient is 41-year-old female presents for postop follow-up. She is recovering normally. She is 1 week postop from a robotic assisted total hysterectomy and bilateral salpingectomy. She has no complaints. Her incisions are clean dry and intact. She will follow up as needed. Emery Grant MD [address], [place], [address], [facility] 06/04/2022 22:55:40 06/21/2022 text/html patient is more than 6 week postop from hysterectomy. She has had a severe rash/reaction to the skin glue are the skin prep. Across her upper abdomen she has erythema vesicles. There is very many small vesicles skin closed around the incision sites. However the glue area is delineated sharply and there was little reaction under the area where the glue is placed. But there appears to be intense reaction around the glue. Posterior is. She is treated with a Medrol Dosepak and topical steroid. She is recovering normally from hysterectomy. She did not wait for her postop visit. She has considerable anxiety and left for she was seen. Emery Grant MD [address], [place], [address], [facility] 06/21/2022 12:31:26 07/02/2022 text/html this patient is a 41-year-old female who presents for follow-up for a skin reaction to skin prep for her surgery. She had a hysterectomy. Weeks after the surgery she developed a serious pustular rash in the pattern of her skin incisions and her prep. She was treated with oral steroids and topical steroids. It is improved greatly. Skin appears to be healing. She has no more symptoms. We agreed to follow-up as needed. Emery Grant MD [address], [place], [address], [facility] 07/02/2022 20:03:40 09/10/2022 text/html 41-year-old who reports foul-smelling vaginal discharge. It has odor. Has a paniagua color. She has complaints diminished sensation in the vagina since hysterectomy. She is treated with Flagyl gel. She is about 3-4 months from hysterectomy. She should follow this problem for the next couple of months and see if she gets any sensation back to nerve healing. Emery Grant MD [address], [place], [address], [facility] 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 Machine Operator Status 11/12/19 21 1 CLOSED Fetus Data First Name Last Name Admitted to NICU Weight (g) Sex Living Outcome Pediatric Complications Fetus ID Race Codes Race Delivery Type 4337.24 6704 M Full Term [id number] Vaginal Delivery Pop Calculation Initial Pop Date Initial Exam Date Initial Exam Provider Initial Ultrasound Date Last Menstrual Period Date Ultra Sound Weeks Gestation 0 Eighteen To Twenty Week Pop Update Ultra Sound Date Fundal Height At Umbil Quickening Date Ultra Sound Latest Weeks Gestation Final Pop Confirmed By Final Pop Confirmed Date Final Pop Date Ultra Sound Latest Days Gestation 0 0 Menstrual History Last Menstrual Date Menses Monthly On Bcp Conception Prior Menses Frequency Hcg Plus Date Menarche Onset Age Delivery Information Delivery Date Delivery Type Labor Anesthesia Weeks Gestation Incision Type Labor Labor Length Hrs Delivered By Post Complications Tubal Sterilization Discharge Date Comments 4 40 Discharge Information Feeding Method Contraceptive Method Maternal HG B and HCT Levels Ob Episode Information Episode Created Date Number of Fetuses Patient Bloodtype Patient rh Status Prepregnancy Weight lbs Domestic Partner Domestic Partner Phone Father Name Cut And Print Machine Operator Status 11/12/19 21 1 CLOSED Fetus Data First Name Last Name Admitted to NICU Weight (g) Sex Living Outcome Pediatric Complications Fetus ID Race Codes Race Delivery Type 3968.93 M Full Term [id number] Vaginal Delivery Pop Calculation Initial Pop Date Initial Exam Date Initial Exam Provider Initial Ultrasound Date Last Menstrual Period Date Ultra Sound Weeks Gestation 0 Eighteen To Twenty Week Pop Update Ultra Sound Date Fundal Height At Umbil Quickening Date Ultra Sound Latest Weeks Gestation Final Pop Confirmed By Final Pop Confirmed Date Final Pop Date Ultra Sound Latest Days Gestation 0 0 Menstrual History Last Menstrual Date Menses Monthly On Bcp Conception Prior Menses Frequency Hcg Plus Date Menarche Onset Age Delivery Information Delivery Date Delivery Type Labor Anesthesia Weeks Gestation Incision Type Labor Labor Length Hrs Delivered By Post Complications Tubal Sterilization Discharge Date Comments 9 40 Discharge Information Feeding Method Contraceptive Method Maternal HG B and HCT Levels
--- OUTSIDE RECORDS SUMMARY | 2025-06-15 09:12 | XMS_ITS | Encounter Summary ---
Author Organization [facility] Address [address] [place] [address] Care Team Providers Care Biosecurity Officer Name Role Phone Unavailable Primary Care Provider Unavailabl e Encounter Details Date Type Department Care Team (Late st Contact Info) Description 06/02/2024 Lab Requisition [facility] - DermPath Lab [address] [place] [address] Hemalatha King PA [address] [place] [phone] Neoplasm of uncertain behavior of skin Social [...] AM CDT) Case Report Dermatopathology Report Case: [id number] Authorizing Provider: Hemalatha King PA Collected: 06/02/2024 12:00 AM Ordering Location: [facility] - Received: 06/03/2024 12:47 [...] characteristic determined by the Dermatopathology Laboratory at [facility], directed by Dr. Mickey Perez. These tests need not be, and therefore are not, approved by the [place] Food and Drug Administration. The tests are used for clinical purposes. Billing Codes Specimen Charges Stain Charges 26438 1 2:20 PM CDT DERMATOPATHOLOGY LABORATORY Embedded Images 2:20 PM CDT DERMATOPATHOLOGY LABORATORY Pathology/Cytolog y TISSUE SPECIMEN FROM SKIN / Unknown 06/02/2024 06/03/2024 12:47 PM CDT [facility] - PATHOLOGY/CYTOLOGY OR DERABLES Final Result DERMATOPATHOLOGY LABORATORY [facility] - Department of Dermatology [address] [phone] documented in this encounter Visit Diagnoses Diagnosis Neoplasm of uncertain behavior of skin documented in this encounter
--- OUTSIDE RECORDS SUMMARY | 2025-06-15 09:12 | XMS_ITS | Clinical Summary ---
Author Organization [facility] [employer] [facility] Address [address] [place] [address] Care Team Providers Care Newborn Hearing Screener Name Role Phone Unavailable Primary Care Provider Unavailabl e Source Comments [facility] [employer] [facility],non-owned Affiliates and Associated Physician Practices is amultiple site organization consisting of ambulatory clinics and hospital sitesin [place], [place], [place] and [place]. This disclosure is being madepursuant to the Care Everywhere program and may not contain all information available regarding this patient. Last updated 18.[employer]EX [facility] [facility] Allergies No known active allergies Medications * [...] Comments Blood Pressure 126/80 06/14/2020 6:15 PM SHOWROOM EXECUTIVE DIRECTOR Pulse 72 06/14/2020 6:15 PM SHOWROOM EXECUTIVE DIRECTOR Temperature - - Respiratory Rate 16 06/14/2020 6:15 PM SHOWROOM EXECUTIVE DIRECTOR Oxygen Saturation 98% 06/14/2020 6:15 PM SHOWROOM EXECUTIVE DIRECTOR Inhaled Oxygen Concentration - - Weight - [...]
== END 2025-06-15 09:31 | disposition home or self-care (01) ==
PROVIDERS: Emergency Provider Nurse Practitioner Family
DX: J06.9 Acute upper respiratory infection, unspecified (principal)
CPT/HCPCS: 99213; G0463